=== PATIENT | male | born 1980 ===

== ENCOUNTER 2017-04-13 07:20 | Inpatient (IN) | payer OTHER ==
[2017-04-13] MEDS ORDERED: Albuterol-Ipratrop 3 mg / 0.5 (3 ml) UD ONE ×2 (07:34→07:54)
[2017-04-13 07:41] VITALS: BMI 29.2
[2017-04-13] MEDS ORDERED: Albuterol 0.083% Inhal Sol (2.5 mg/3 mL) UD INH STA (07:44)
[2017-04-13] MEDS ORDERED: Albuterol-Ipratrop 3 mg / 0.5 (3 ml) UD IH STA (07:44)
[2017-04-13] MEDS ORDERED: Albuterol 0.083% Inhal Sol (2.5 mg/3 mL) UD IH STA (07:44)
[2017-04-13 07:54] LABS: BASO # 0.1 K/uL (0.0-0.2); BASO % 0.9 % (0.0-2.0); EOS # 0.3 K/uL (0.0-0.7); HEMATOCRIT 46.5 % (35.0-51.0); LYMPH # 2.8 K/uL (1.0-4.3); LYMPH % 21.1 % (20.0-40.0); MEAN CELL VOLUME 82.7 fL (80.0-94.0); MEAN CORPUSCULAR HEMOGLOBIN 28.2 pg (27.0-31.0); MEAN CORPUSCULAR HGB CONC 34.1 g/dL (33.0-37.0); MEAN PLATELET VOLUME 8.1 fL (7.2-11.7); MONO # 0.6 K/uL (0.0-0.8); MONO % 4.6 % (0.0-10.0); NRBC % 0.4 % (0.0-2.0); RED CELL DISTRIBUTION WIDTH 14.2 % (11.5-14.5); WHITE BLOOD COUNT 13.5 K/uL (4.8-10.8)
[2017-04-13] MEDS ORDERED: Albuterol 0.083% Inhal Sol (2.5 mg/3 mL) UD ONE (07:57)
[2017-04-13 08:06] LABS: CHLORIDE 99 mmol/L (98-107); POTASSIUM 4.1 mmol/L (3.6-5.2); SODIUM 138 mmol/L (132-148)
[2017-04-13 08:08] LABS: GFR AFRICAN-AMERICAN > 60
[2017-04-13 08:09] LABS: ALB/GLOB RATIO 1.1 (1.0-2.1); ALKALINE PHOSPHATASE 105 U/L (38-126); ALT/SGPT 54 U/L (21-72); AST/SGOT 31 U/L (17-59); BILIRUBIN,TOTAL 0.9 mg/dL (0.2-1.3); BLOOD UREA NITROGEN 15 mg/dL (9-20); CARBON DIOXIDE 24 mmol/L (22-30); GLUCOSE,RANDOM 143 mg/dL (75-110); TOTAL PROTEIN 8.8 g/dL (6.3-8.3)
[2017-04-13 08:10] LABS: CALCIUM 9.6 mg/dl (8.6-10.4)
--- NOTE | 2017-04-13 09:25 | C.PDOC ---
History Of Present Illness 36-year-old male, presents to the emergency department with complaints of shortness of breath and a mild cough that started several about two weeks ago. Patient was seen in [place], 8 days ago for same. He was treated and discharged. Patient notes that his cough worsened, associated with blood streaked sputum, resulting in him coming to the ED for evaluation. Denies nausea /vomiting, fevers or chills. Time Seen by Provider: 04/13/17 07:41 Chief Complaint (Nursing): Cough, Cold, Congestion History Per: Patient History/Exam Limitations: no limitations Past Medical History Reviewed: Historical Data, Nursing Documentation, Vital Signs Vital Signs: Last Vital Signs Temp 98.2 F 04/13/17 16:00 Pulse 102 H 04/13/17 16:00 Resp 20 04/13/17 16:00 BP 135/75 04/13/17 16:00 Pulse Ox 96 04/13/17 16:00 - Medical History PMH: Asthma Surgical History: Appendectomy Family History: States: No Known Family Hx - Social History Hx Alcohol Use: No Hx Substance Use: No - Immunization History Hx Tetanus Toxoid Vaccination: No Hx Influenza Vaccination: No Review Of Systems Except As Marked, All Systems Reviewed And Found Negative. Constitutional: Negative for: Fever Cardiovascular: Negative for: Chest Pain, Palpitations Respiratory: Positive for: Cough, Shortness of Breath Gastrointestinal: Negative for: Nausea, Vomiting Musculoskeletal: Negative for: Back Pain Neurological: Negative for: Weakness, Numbness Physical Exam - Physical Exam Appears: Non-toxic, No Acute Distress Skin: Warm, Dry, No Rash Head: Atraumatic, Normacephalic Eye(s): bilateral: Normal Inspection, PERRL Nose: Normal Oral Mucosa: Moist Lips: Normal Appearing Neck: Normal ROM Cardiovascular: Rhythm Regular, No Murmur Respiratory: No Accessory Muscle Use, No Rales, No Rhonchi, No Stridor, Wheezing Extremity: Normal ROM Neurological/Psych: Oriented x3, Normal Speech ED Course And Treatment - Laboratory Results Result Diagrams: 04/13/17 07:51 04/13/17 07:51 O2 Sat by Pulse Oximetry: 88 Pulse Ox Interpretation: Abnormal - Radiology CXR: Interpreted by Me, Viewed By Me Medical Decision Making Medical Decision Making: Patients O2 saturation 88 upon arrival. He was given three treatments and O2 sat w/ minimal improvement. Case was discussed w/ Dr xena Alejandre, states he will accept patient to regular floor for observation. Patient agreeable with plan. Disposition - Disposition Disposition: HOSPITALIZED Disposition Time: 09:25 Condition: GOOD - Clinical Impression Clinical Impression: Asthma exacerbation, Hypoxia - Scribe Statement The provider has reviewed the documentation as recorded by the Scribe (Josephine Castelan) All medical record entries made by the Scribe were at my direction and personally dictated by me. I have reviewed the chart and agree that the record accurately reflects my personal performance of the history, physical exam, medical decision making, and the department course for this patient. I have also personally directed, reviewed, and agree with the discharge instructions and disposition. Decision To Admit - Pt Status Changed To: Hospital Disposition Of: Observation - . Bed Request Type: Regular Admitting Physician: Benton Alejandre Patient Diagnosis: Asthma exacerbation, Hypoxia
--- NOTE | 2017-04-13 12:43 | RAD ---
HISTORY: SOB, cough COMPARISON: No prior. TECHNIQUE: Chest PA and lateral FINDINGS: LUNGS: No active pulmonary disease. PLEURA: No significant pleural effusion identified. No pneumothorax apparent. CARDIOVASCULAR: Normal. OSSEOUS STRUCTURES: No significant abnormalities. VISUALIZED UPPER ABDOMEN: Normal. OTHER FINDINGS: None. IMPRESSION: No active disease. Concordant results with the preliminary interpretation rendered by the emergency department physician procedure.
[2017-04-13] MEDS ORDERED: Tuberculin 5 Units/0.1 ml Inj ID ONE (13:30)
--- NOTE | 2017-04-13 13:58 | CP.PCM.HP ---
<Bre Cardenas - Last Filed: 04/13/17 13:42> History of Present Illness - History of Present Illness History of Present Illness: CC: "I couldn't breath" HPI: 36 year old male with no past medical history presenting to the emergency department for shortness of break for the past week. Patient stated that his shortness of breath began on 04/07. He went to [facility] that day and was sent home with a script for albuterol INH q6h prn. The patient did not fill the script until 2 days later and by then his shortness of breath had worsened. The patient is short of breath at rest as well as with exertion. Patient denies having a history of asthma and ever needing albuterol prior to last week. The albuterol prescription was filled 04/09 and the patient has been using it every 6 hours with mild relief. The patient states over the week his shortness of breath has been increasing and today unbearable. Patient is also complaining of subjective fevers which he has been taking acetaminophen. Patient is also complaining of a productive cough with yellow sputum that started on the same day. The patient complains of sore throat. Patient denies headache, sinus pressure, and nasal congestion. On 04/12 the sputum was blood tinged (3 episodes) and no more blood tinging since that Friday. Patient denies weight loss, nausea, vomiting, and diarrhea. Patient has had decreased appetite. Patient also complains of night sweats. Patient denies recent travel and moved from [facility] 14 years ago. Patient denies recent sick contacts. Patients has never had tuberculosis nor the BCG vaccine. PMD: none PMHx: denies Social Hx: Denies tobacco use, denies alcohol use, denies illicit drug use; works at a [employer], only Montenegrin speaking Allergy: none Surgical Hx: appendectomy in 2010 Hospitalizations: appendectomy in 2010 Family Hx: mother has insulin dependent DM, father healthy, older sister asthma Medicine: none Recent albuterol and acetaminophen use FULL CODE Next of kin: Holly Lewis () # [phone] Present on Admission - Present on Admission Any Indicators Present on Admission: No Review of Systems - Constitutional Constitutional: As Per HPI, Chills, Fever, Night Sweats - EENT Eyes: As Per HPI. absent: Blurred Vision, Change in Vision Ears: As Per HPI. absent: Dizziness Nose/Mouth/Throat: As Per HPI, Sore Throat. absent: Nasal Congestion, Nasal Discharge - Cardiovascular Cardiovascular: As Per HPI, Dyspnea. absent: Chest Pain, Leg Edema, Lightheadedness, Palpitations - Respiratory Respiratory: As Per HPI, Cough, Dyspnea, Dyspnea on Exertion, Chest Congestion, Change in Mucous Color, Pain with Coughing. absent: Hemoptysis, Wheezing, Snoring, Stridor - Gastrointestinal Gastrointestinal: As Per HPI. absent: Abdominal Pain, Belching, Bloating, Constipation, Diarrhea, Nausea, Vomiting - Genitourinary Genitourinary: As Per HPI. absent: Change in Urinary Stream, Difficulty Urinating - Musculoskeletal Musculoskeletal: As Per HPI. absent: Arthralgias, Back Pain, Muscle Cramps, Muscle Weakness, Neck Pain, Numbness, Stiffness, Tingling - Integumentary Integumentary: As Per HPI. absent: New Lesions, Rash - Neurological Neurological: As Per HPI. absent: Dizziness, Headaches - Psychiatric Psychiatric: As Per HPI. absent: Anxiety, Depression - Endocrine Endocrine: As Per HPI. absent: Fatigue, Palpitations Past Patient History - Past Medical History & Family History Past Medical History?: No - Past Social History Smoking Status: Never Smoked - CARDIAC Hx Cardiac Disorders: No - PULMONARY Hx Asthma: Yes - NEUROLOGICAL Hx Neurological Disorder: No - HEENT Hx HEENT Problems: No - RENAL Hx Chronic Kidney Disease: No - ENDOCRINE/METABOLIC Hx Endocrine Disorders: No - HEMATOLOGICAL/ONCOLOGICAL Hx Blood Disorders: No - INTEGUMENTARY Hx Dermatological Problems: No - MUSCULOSKELETAL/RHEUMATOLOGICAL Hx Musculoskeletal Disorders: No Hx Falls: No - GASTROINTESTINAL Hx Gastrointestinal Disorders: No - GENITOURINARY/GYNECOLOGICAL Hx Genitourinary Disorders: No - PSYCHIATRIC Hx Substance Use: No - SURGICAL HISTORY Hx Appendectomy: Yes - ANESTHESIA Hx Anesthesia: Yes Hx Anesthesia Reactions: No Hx Malignant Hyperthermia: No Has any member of the family had a problem w/ anesthesia?: No Meds Allergies/Adverse Reactions: Allergies Allergy/AdvReac Type Severity Reaction Status Date / Time No Known Allergies Allergy Verified 04/13/17 07:40 Physical Exam - Constitutional Appears: Well, Non-toxic, No Acute Distress - Head Exam Head Exam: ATRAUMATIC, NORMOCEPHALIC - Eye Exam Eye Exam: EOMI, Normal appearance, PERRL Pupil Exam: NORMAL ACCOMODATION - ENT Exam ENT Exam: Mucous Membranes Moist, Normal Exam - Neck Exam Neck exam: Positive for: Normal Inspection - Respiratory Exam Respiratory Exam: Decreased Breath Sounds, Rales (Left lower lobe), NORMAL BREATHING PATTERN. absent: Accessory Muscle Use, Clear to Auscultation Bilateral, Wheezes, Respiratory Distress, Stridor Additional comments: Patient received nebulizer treatment prior to examination and was examined with ventimask on 3L O2 - Cardiovascular Exam Cardiovascular Exam: REGULAR RHYTHM, +S1, +S2. absent: Bradycardia, Tachycardia , Diastolic murmur, Irregular Rhythm, Systolic Murmur - GI/Abdominal Exam GI & Abdominal Exam: Normal Bowel Sounds, Soft. absent: Distended, Firm, Guarding, Tenderness - Extremities Exam Extremities exam: Positive for: full ROM, normal capillary refill, normal inspection, pedal pulses present. Negative for: pedal edema - Back Exam Back exam: NORMAL INSPECTION - Neurological Exam Neurological exam: Alert, CN II-XII Intact, Oriented x3 - Psychiatric Exam Psychiatric exam: Normal Affect, Normal Mood - Skin Skin Exam: Dry, Intact, Normal Color, Warm Results - Vital Signs Recent Vital Signs: Last Vital Signs Temp 99.0 F 04/13/17 11:29 Pulse 90 04/13/17 11:29 Resp 20 04/13/17 11:29 BP 127/76 04/13/17 11:29 Pulse Ox 88 L 04/13/17 11:46 - Labs Result Diagrams: 04/13/17 07:51 04/13/17 07:51 Labs: Laboratory Results - last 24 hr 04/13/17 04/13/17 04/13/17 07:51 07:51 11:56 WBC 13.5 H RBC 5.62 Hgb 15.8 Hct 46.5 MCV 82.7 MCH 28.2 MCHC 34.1 RDW 14.2 Plt Count 533 H MPV 8.1 Neut % (Auto) 71.4 Lymph % (Auto) 21.1 Sherman % (Auto) 4.6 Eos % (Auto) 2.0 Baso % (Auto) 0.9 Neut # 9.7 H Lymph # 2.8 Sherman # 0.6 Eos # 0.3 Baso # 0.1 D-Dimer, Quantitative 271 H Sodium 138 Potassium 4.1 Chloride 99 Carbon Dioxide 24 Anion Gap 19 BUN 15 Creatinine 0.9 Est GFR ( Amer) > 60 Est GFR (Non-Af Amer) > 60 Random Glucose 143 H Calcium 9.6 Total Bilirubin 0.9 AST 31 ALT 54 Alkaline Phosphatase 105 Total Protein 8.8 H Albumin 4.6 Globulin 4.2 H Albumin/Globulin Ratio 1.1 Assessment & Plan - Assessment and Plan (Free Text) Assessment: 1. Asthma * Admit for observation * Solumedrol IV 60mg q8h * Duonebs q6h INH GUS with pre and post peak flow, will change to prn after 24 hours * f/u influenza * Consulted radiologic electronic specialist Dr Marx- will f/u recommendations * f/u PPD * Mucinex 600mg BID 2. Elevated D-dimer * EKG shows NSR, no ST changes * f/u CTA chest to rule out PE * Patient low risk for DVT/PE 3. Leukocytosis * WBC 13.5, no left shift, afebrile * Will monitor CBC daily; if patient becomes febrile will order blood cultures 4. Prophylactic measures * DVT risk score of 0: SCDs * Pepcid 20mg PO BID * Regular diet <Benton Alejandre - Last Filed: 04/13/17 22:55> Results - Vital Signs Recent Vital Signs: Last Vital Signs Temp 98.2 F 04/13/17 16:00 Pulse 102 H 04/13/17 16:00 Resp 20 04/13/17 16:00 BP 135/75 04/13/17 16:00 Pulse Ox 94 L 04/13/17 19:00 - Labs Result Diagrams: 04/13/17 07:51 04/13/17 07:51 Labs: Laboratory Results - last 24 hr 04/13/17 04/13/17 04/13/17 07:51 07:51 11:56 WBC 13.5 H RBC 5.62 Hgb 15.8 Hct 46.5 MCV 82.7 MCH 28.2 MCHC 34.1 RDW 14.2 Plt Count 533 H MPV 8.1 Neut % (Auto) 71.4 Lymph % (Auto) 21.1 Sherman % (Auto) 4.6 Eos % (Auto) 2.0 Baso % (Auto) 0.9 Neut # 9.7 H Lymph # 2.8 Sherman # 0.6 Eos # 0.3 Baso # 0.1 D-Dimer, Quantitative 271 H Sodium 138 Potassium 4.1 Chloride 99 Carbon Dioxide 24 Anion Gap 19 BUN 15 Creatinine 0.9 Est GFR ( Amer) > 60 Est GFR (Non-Af Amer) > 60 Random Glucose 143 H Calcium 9.6 Total Bilirubin 0.9 AST 31 ALT 54 Alkaline Phosphatase 105 Total Protein 8.8 H Albumin 4.6 Globulin 4.2 H Albumin/Globulin Ratio 1.1 Influenza Typ A,B (EIA) 04/13/17 13:34 WBC RBC Hgb Hct MCV MCH MCHC RDW Plt Count MPV Neut % (Auto) Lymph % (Auto) Sherman % (Auto) Eos % (Auto) Baso % (Auto) Neut # Lymph # Sherman # Eos # Baso # D-Dimer, Quantitative Sodium Potassium Chloride Carbon Dioxide Anion Gap BUN Creatinine Est GFR ( Amer) Est GFR (Non-Af Amer) Random Glucose Calcium Total Bilirubin AST ALT Alkaline Phosphatase Total Protein Albumin Globulin Albumin/Globulin Ratio Influenza Typ A,B (EIA) Negative for flu a/b Attending/Attestation - Attestation I have personally seen and examined this patient.: Yes I have fully participated in the care of the patient.: Yes I have reviewed all pertinent clinical information: Yes Notes (Text): 04/13/17 22:53 Patient was seen and examined with the resident History, Physical, Assessment and Plan were thoroughly gone over the resident. Benton Alejandre D.O.
[2017-04-13] MEDS: Albuterol-Ipratrop 3 mg / 0.5 (3 ml) UD INH SCH ×2 (14:38→20:38)
[2017-04-13] MEDS ORDERED: Iodixanol 320 MG/ML 100 ML BOTTLE IV ONE (17:04)
[2017-04-13] MEDS: guaiFENesin 600 mg ER Tab PO SCH (17:51)
--- NOTE | 2017-04-13 17:53 | CT ---
PROCEDURE: CT Chest with contrast (Pulmonary Angiogram) HISTORY: elevated d dimer COMPARISON: None available. TECHNIQUE: Axial computed tomography images were obtained of the chest in the pulmonary arterial phase of enhancement. Coronal and sagittal reformatted images were created and reviewed. Intravenous contrast dose: 100 mL Visipaque 320 Radiation dose: Total exam DLP = 481.77 mGy-cm. This CT exam was performed using one or more of the following dose reduction techniques: Automated exposure control, adjustment of the mA and/or kV according to patient size, and/or use of iterative reconstruction technique. FINDINGS: PULMONARY ARTERIES: Suboptimal study. No pulmonary embolism. AORTA: No acute findings. No thoracic aortic aneurysm. LUNGS: No evidence of focal infiltrate or consolidation in the lungs. . No nodule, mass or pulmonary consolidation. PLEURAL SPACES: No evidence of significant pleural effusion. Mild pleural thickening seen at the lung bases. HEART: Unremarkable. No cardiomegaly. No significant pericardial effusion. LYMPH NODES: Slightly prominent precarinal and AP window lymph nodes are seen. BONES, CHEST WALL: Unremarkable. No fracture or destructive lesion OTHER FINDINGS: Unremarkable. IMPRESSION: Suboptimal study. No evidence of pulmonary embolus. No evidence of pneumonia or mass lesion in the lungs. Hepatic steatosis.
[2017-04-14] MEDS: Albuterol-Ipratrop 3 mg / 0.5 (3 ml) UD INH SCH ×4 (01:34→19:49)
[2017-04-14 07:31] LABS: BASO % 0.1 % (0.0-2.0); HEMATOCRIT 43.2 % (35.0-51.0); LYMPH # 1.1 K/uL (1.0-4.3); LYMPH % 8.4 % (20.0-40.0); MEAN CORPUSCULAR HEMOGLOBIN 28.4 pg (27.0-31.0); MEAN CORPUSCULAR HGB CONC 34.2 g/dL (33.0-37.0); MEAN PLATELET VOLUME 8.2 fL (7.2-11.7); MONO # 0.4 K/uL (0.0-0.8); MONO % 2.8 % (0.0-10.0); PLATELET COUNT 528 K/uL (130-400); RED CELL DISTRIBUTION WIDTH 14.2 % (11.5-14.5)
[2017-04-14 07:50] LABS: CHLORIDE 102 mmol/L (98-107); SODIUM 139 mmol/L (132-148)
[2017-04-14 07:52] LABS: GFR AFRICAN-AMERICAN > 60
[2017-04-14 07:53] LABS: BLOOD UREA NITROGEN 20 mg/dL (9-20); CALCIUM 9.5 mg/dl (8.6-10.4); CARBON DIOXIDE 24 mmol/L (22-30); GLUCOSE,RANDOM 146 mg/dL (75-110)
[2017-04-14] MEDS: guaiFENesin 600 mg ER Tab PO SCH ×2 (09:06→18:00)
[2017-04-14 09:17] LABS: NEUTROPHIL 86 % (50-75); REACTIVE LYMPHOCYTES 1 % (0-0); TOTAL CELLS COUNTED 100
--- NOTE | 2017-04-14 15:06 | CP.PCM.PN ---
<Yojana Martin - Last Filed: 04/14/17 14:49> Subjective - Date & Time of Evaluation Date of Evaluation: 04/14/17 Time of Evaluation: 10:00 - Subjective Subjective: Medicine Note for Dr. Brito Patient was seen and examined at bedside. Patient reports his breathing has much improved. No acute complaints. Denied fever, chills, headache, chest pain, abdominal pain, n/v/d/c, or urinary symptoms. Objective - Vital Signs/Intake and Output Vital Signs (last 24 hours): Temp Pulse Resp BP Pulse Ox 97.4 F L 94 H 88 H 131/77 97 04/14/17 08:22 04/14/17 08:22 04/14/17 08:22 04/14/17 08:22 04/14/17 00:00 Intake and Output: 04/14/17 04/14/17 06:59 18:59 Intake Total 420 Balance 420 - Medications Medications: Current Medications Albuterol/Ipratropium (Duoneb 3 Mg/0.5 Mg (3 Ml) Ud) 3 ml INH RQ6 GUS Last Admin: 04/14/17 13:19 Dose: 3 ml Guaifenesin (Mucinex La) 600 mg PO BID GUS Last Admin: 04/14/17 09:06 Dose: 600 mg Methylprednisolone (Solu-Medrol) 60 mg IVP Q12H GUS Pantoprazole Sodium (Protonix Inj) 40 mg IVP DAILY GUS Pneumococcal Polyvalent Vaccine (Pneumovax 23 Vaccine) 0.5 ml IM .ONCE ONE Stop: 04/16/17 10:01 Promethazine HCl/Codeine (Phenergan/Codeine Oral Syrup) 5 ml PO Q4 PRN PRN Reason: Cough - Labs Labs: 04/14/17 07:06 04/14/17 07:06 - Additional Findings Additional findings: - Constitutional Appears: Well, Non-toxic, No Acute Distress - Head Exam Head Exam: ATRAUMATIC, NORMOCEPHALIC - Eye Exam Eye Exam: EOMI, Normal appearance, PERRL Pupil Exam: NORMAL ACCOMODATION - ENT Exam ENT Exam: Mucous Membranes Moist, Normal Exam - Neck Exam Neck exam: Positive for: Normal Inspection - Respiratory Exam Respiratory Exam: Decreased Breath Sounds, Rales (Left lower lobe), NORMAL BREATHING PATTERN. absent: Accessory Muscle Use, Clear to Auscultation Bilateral, Wheezes, Respiratory Distress, Stridor Additional comments: Patient received nebulizer treatment prior to examination and was examined with NC on 2L O2 - Cardiovascular Exam Cardiovascular Exam: REGULAR RHYTHM, +S1, +S2. absent: Bradycardia, Tachycardia , Diastolic murmur, Irregular Rhythm, Systolic Murmur - GI/Abdominal Exam GI & Abdominal Exam: Normal Bowel Sounds, Soft. absent: Distended, Firm, Guarding, Tenderness - Extremities Exam Extremities exam: Positive for: full ROM, normal capillary refill, normal inspection, pedal pulses present. Negative for: pedal edema - Back Exam Back exam: NORMAL INSPECTION - Neurological Exam Neurological exam: Alert, CN II-XII Intact, Oriented x3 - Psychiatric Exam Psychiatric exam: Normal Affect, Normal Mood - Skin Skin Exam: Dry, Intact, Normal Color, Warm Assessment and Plan - Assessment and Plan (Free Text) Plan: Asthma * Consulted patient ambassador Dr Marx- help appreciated * Influenza - negative, f/u strep pneumonia, IgE, legionella, mycoplasma, PPD ( right forearm) * CXR: no active disease * Solumedrol IV 60mg q12h * Duonebs q6h INH GUS (Pre-peak flow 220) * Mucinex 600mg BID * Phenergan/ Codeine 5ml PO Q4H PRN Elevated D-dimer * CXR: no active disease * EKG shows NSR, no ST changes * CTA chest- negative for PE * Patient low risk for DVT/PE Leukocytosis * WBC 13.5, no left shift, afebrile * Will monitor CBC daily; if patient becomes febrile will order blood cultures * Most likely 2/2 steroids Prophylactic measures * DVT PPX: DVT risk score of 0: SCDs * GI PPX: Protonix 40mg PO daily * Regular diet DW Veronica Mohamud DO, PGY-1 <Jen Brito V - Last Filed: 04/14/17 17:57> Objective - Vital Signs/Intake and Output Vital Signs (last 24 hours): Temp Pulse Resp BP Pulse Ox 99.1 F 102 H 20 144/72 94 L 04/14/17 16:00 04/14/17 16:00 04/14/17 16:00 04/14/17 16:00 04/14/17 16:00 Intake and Output: 04/14/17 04/14/17 06:59 18:59 Intake Total 420 240 Balance 420 240 - Medications Medications: Current Medications Albuterol/Ipratropium (Duoneb 3 Mg/0.5 Mg (3 Ml) Ud) 3 ml INH RQ6 GUS Last Admin: 04/14/17 13:19 Dose: 3 ml Guaifenesin (Mucinex La) 600 mg PO BID GUS Last Admin: 04/14/17 09:06 Dose: 600 mg Methylprednisolone (Solu-Medrol) 60 mg IVP Q12H GUS Pantoprazole Sodium (Protonix Inj) 40 mg IVP DAILY GUS Pneumococcal Polyvalent Vaccine (Pneumovax 23 Vaccine) 0.5 ml IM .ONCE ONE Stop: 04/16/17 10:01 Promethazine HCl/Codeine (Phenergan/Codeine Oral Syrup) 5 ml PO Q4 PRN PRN Reason: Cough - Labs Labs: 04/14/17 07:06 04/14/17 07:06 Attending/Attestation - Attestation I have personally seen and examined this patient.: Yes I have fully participated in the care of the patient.: Yes I have reviewed all pertinent clinical information, including history, physical exam and plan: Yes Notes (Text): Patient seen, examined, and case discussed with day-time resident. Patient with no prior history of asthma comes in following repeated use of his rescue inhaler. Patient reports his breathing is better. Patient has not formally being seen by patient ambassador nor had a workup for diagnosis of asthma. Patient's peak flow on admission was 220. Will need to follow-up peak flow to see improvement f/u pulm for recommendations Assessment/Plan 1) Suspected Asthma; Possible Bronchitis * Consulted patient ambassador Dr Marx- help appreciated * Influenza - negative, f/u strep pneumonia, IgE, legionella, mycoplasma, * PPD (right forearm) placed on 04/13--> to be read on 04/15 at 130PM * CXR: no active disease * Taper Solumedrol IV 60mg q12h * Duonebs q6h INH GUS (Pre-peak flow 220) * Mucinex 600mg BID * Phenergan/ Codeine 5ml PO Q4H PRN cough * CT Chest (04/14/17): suboptimal study. no evidence of pulmonary embolus. No evidence of pneumonia or mass lesion in the lungs. hepatic steatosis 2) Elevated D-dimer * CXR: no active disease * EKG shows NSR, no ST changes * CT Chest (04/14/17): suboptimal study. no evidence of pulmonary embolus. No evidence of pneumonia or mass lesion in the lungs. hepatic steatosis * Patient low risk for DVT/PE 3) Leukocytosis * WBC 13.5, no left shift, afebrile on admission * Patient started on IV steroids * Will continue to monitor * Will monitor CBC daily; if patient becomes febrile will order blood cultures * Most likely 2/2 steroids 4) Prophylactic measures * DVT PPX: DVT risk score of 0: SCDs * GI PPX: Protonix 40mg PO daily * Regular diet
[2017-04-14] MEDS: Promethazine/Cod 6.25mg-10mg/5ml Syr UD PO PRN (18:20)
--- NOTE | 2017-04-14 21:38 | CARD ---
APPROVED REPORT EKG Measurement Heart [id number] <Conclusion> Sinus tachycardia Otherwise normal ECG
[2017-04-15] MEDS: Albuterol-Ipratrop 3 mg / 0.5 (3 ml) UD INH SCH ×4 (01:33→19:07)
[2017-04-15] MEDS: guaiFENesin 600 mg ER Tab PO SCH ×2 (10:02→18:36)
[2017-04-15 10:57] LABS: ABG ALLEN TEST YES; ARTERIAL BLOOD HGB O2 SAT 90.4 % (95.0-98.0); CARBOXYHEMOGLOBIN 1.8 % (0.5-1.5); DRAW SITE RRA; HHB 6.9 % (0.0-5.0); METHEMOGLOBIN 0.9 % (0.0-3.0)
[2017-04-15] MEDS: Promethazine/Cod 6.25mg-10mg/5ml Syr UD PO PRN ×2 (12:11→18:36)
[2017-04-15] MEDS ORDERED: Azithromycin 500 MG in Sodium Chloride 0.9% 250 ML IVPB STA (12:38)
--- NOTE | 2017-04-15 14:17 | CP.PCM.PN ---
<Yojana Martin - Last Filed: 04/15/17 14:12> Subjective - Date & Time of Evaluation Date of Evaluation: 04/15/17 Time of Evaluation: 09:00 - Subjective Subjective: Medicine Note for Dr. Brito Patient was seen and examined at bedside. Patient reports his breathing has much improved, but still does feel SOB during ambulation. No acute complaints. Denied fever, chills, headache, chest pain, abdominal pain, n/v/d/c, or urinary symptoms. Objective - Vital Signs/Intake and Output Vital Signs (last 24 hours): Temp Pulse Resp BP Pulse Ox 98.2 F 100 H 20 147/76 86 L 04/15/17 09:01 04/15/17 09:01 04/15/17 09:01 04/15/17 09:01 04/15/17 09:01 Intake and Output: 04/15/17 04/15/17 06:59 18:59 Intake Total 450 Balance 450 - Medications Medications: Current Medications Albuterol/Ipratropium (Duoneb 3 Mg/0.5 Mg (3 Ml) Ud) 3 ml INH RQ6 GUS Last Admin: 04/15/17 13:10 Dose: 3 ml Guaifenesin (Mucinex La) 600 mg PO BID [facility] Last Admin: 04/15/17 10:02 Dose: 600 mg Azithromycin 500 mg/ Sodium (Chloride) 250 mls @ 166.667 mls/hr IVPB DAILY [facility] Methylprednisolone (Solu-Medrol) 60 mg IVP Q12H [facility] Last Admin: 04/15/17 12:12 Dose: 60 mg Pantoprazole Sodium (Protonix Inj) 40 mg IVP DAILY [facility] Last Admin: 04/15/17 10:02 Dose: 40 mg Pneumococcal Polyvalent Vaccine (Pneumovax 23 Vaccine) 0.5 ml IM .ONCE ONE Stop: 04/16/17 10:01 Promethazine HCl/Codeine (Phenergan/Codeine Oral Syrup) 5 ml PO Q4 PRN PRN Reason: Cough Last Admin: 04/15/17 12:11 Dose: 5 ml - Labs Labs: 04/14/17 07:06 04/14/17 07:06 - Additional Findings Additional findings: - Constitutional Appears: Well, Non-toxic, No Acute Distress - Head Exam Head Exam: ATRAUMATIC, NORMOCEPHALIC - Eye Exam Eye Exam: EOMI, Normal appearance, PERRL Pupil Exam: NORMAL ACCOMODATION - ENT Exam ENT Exam: Mucous Membranes Moist, Normal Exam - Neck Exam Neck exam: Positive for: Normal Inspection - Respiratory Exam Respiratory Exam: Decreased Breath Sounds, Rales (Left lower lobe), NORMAL BREATHING PATTERN. absent: Accessory Muscle Use, Clear to Auscultation Bilateral, Wheezes, Respiratory Distress, Stridor Additional comments: examined with NC on 2L O2 - Cardiovascular Exam Cardiovascular Exam: REGULAR RHYTHM, +S1, +S2. absent: Bradycardia, Tachycardia , Diastolic murmur, Irregular Rhythm, Systolic Murmur - GI/Abdominal Exam GI & Abdominal Exam: Normal Bowel Sounds, Soft. absent: Distended, Firm, Guarding, Tenderness - Extremities Exam Extremities exam: Positive for: full ROM, normal capillary refill, normal inspection, pedal pulses present. Negative for: pedal edema - Back Exam Back exam: NORMAL INSPECTION - Neurological Exam Neurological exam: Alert, CN II-XII Intact, Oriented x3 - Psychiatric Exam Psychiatric exam: Normal Affect, Normal Mood - Skin Skin Exam: Dry, Intact, Normal Color, Warm Assessment and Plan - Assessment and Plan (Free Text) Plan: Suspected Asthma; Possible Bronchitis * Consulted sheet metal duct worker supervisor Dr Marx- help appreciated * Influenza - negative, strep pneumonia, legionella, mycoplasma - all negative, f/u IgE * PPD (right forearm) placed on 04/13--> 48Hr -negative, 72hr - will be read tomorrow * CXR: no active disease * CT Chest (04/14/17): suboptimal study. no evidence of pulmonary embolus. No evidence of pneumonia or mass lesion in the lungs. hepatic steatosis * ABG ordered today, PO2 = 52 on RA * Solumedrol IV 60mg q12h will taper as he improves clinically * Started Azithromax 500mg IVP daily (04/15/17) * Duonebs q6h INH GUS (Pre-peak flow 220) * Mucinex 600mg BID * Phenergan/ Codeine 5ml PO Q4H PRN cough Leukocytosis * Downtrending, Most likely 2/2 steroids * Patient started on IV steroids --> currently on Solumedrol 60mg IVP Q12 * Will monitor CBC daily; if patient becomes febrile will order blood cultures Elevated D-dimer * CXR: no active disease * EKG shows NSR, no ST changes * CT Chest (04/14/17): suboptimal study. no evidence of pulmonary embolus. No evidence of pneumonia or mass lesion in the lungs. hepatic steatosis * Patient low risk for DVT/PE Prophylactic measures * DVT PPX: DVT risk score of 0: SCDs * GI PPX: Protonix 40mg PO daily * Regular diet * PT/OT Disposition: If patient improves clinically, will anticipate discharge tomorrow. DW Veronica Mohamud DO, PGY-1 <Jen Brito V - Last Filed: 04/16/17 01:06> Objective - Vital Signs/Intake and Output Vital Signs (last 24 hours): Temp Pulse Resp BP Pulse Ox 98.3 F 79 18 121/74 96 04/15/17 23:25 04/15/17 23:25 04/15/17 23:25 04/15/17 23:25 04/15/17 23:25 Intake and Output: 04/15/17 04/16/17 18:59 06:59 Intake Total 490 340 Balance 490 340 - Medications Medications: Current Medications Albuterol/Ipratropium (Duoneb 3 Mg/0.5 Mg (3 Ml) Ud) 3 ml INH RQ6 [facility] Last Admin: 04/15/17 19:07 Dose: 3 ml Guaifenesin (Mucinex La) 600 mg PO BID [facility] Last Admin: 04/15/17 18:36 Dose: 600 mg Azithromycin 500 mg/ Sodium (Chloride) 250 mls @ 166.667 mls/hr IVPB DAILY [facility] Methylprednisolone (Solu-Medrol) 60 mg IVP Q12H [facility] Last Admin: 04/16/17 00:11 Dose: 60 mg Pantoprazole Sodium (Protonix Inj) 40 mg IVP DAILY [facility] Last Admin: 04/15/17 10:02 Dose: 40 mg Pneumococcal Polyvalent Vaccine (Pneumovax 23 Vaccine) 0.5 ml IM .ONCE ONE Stop: 04/16/17 10:01 Promethazine HCl/Codeine (Phenergan/Codeine Oral Syrup) 5 ml PO Q4 PRN PRN Reason: Cough Last Admin: 04/15/17 18:36 Dose: 5 ml - Labs Labs: 04/14/17 07:06 04/14/17 07:06 Attending/Attestation - Attestation I have personally seen and examined this patient.: Yes I have fully participated in the care of the patient.: Yes I have reviewed all pertinent clinical information, including history, physical exam and plan: Yes Notes (Text): This is late computer entry for 04/15/17. Patient seen, examined, and case discussed with day-time resident. Patient with no prior history of asthma comes in following repeated use of his rescue inhaler. Patient reports his breathing is better. Pulmonary recommended ABG; which shows patient is hypoxic; Physcial therapy eval ; Patient ambulating with today. Ordered for echocardiogram for possible pulmonary hypertension Patient received 1st dose of Azithromycin 500mg IV q daily. Patient has not formally being seen by sheet metal duct worker supervisor nor had a workup for diagnosis of asthma. Patient's peak flow on admission was 220. Will need to follow-up peak flow to see improvement Assessment/Plan 1) Suspected Asthma; Possible Bronchitis * Consulted sheet metal duct worker supervisor Dr Marx- help appreciated * Influenza - negative, f/u strep pneumonia, IgE, legionella, mycoplasma, * PPD (right forearm) placed on 04/13--> negative; flat; next read tomorrow * CXR: no active disease * Taper Solumedrol IV 60mg q12h * Duonebs q6h INH GUS (Pre-peak flow 220)-->f/u respiratory therapist * Mucinex 600mg BID * Phenergan/ Codeine 5ml PO Q4H PRN cough * CT Chest (04/14/17): suboptimal study. no evidence of pulmonary embolus. No evidence of pneumonia or mass lesion in the lungs. hepatic steatosis * Start Azithromcyin 500mg IV q daily 2) Elevated D-dimer * CXR: no active disease * EKG shows NSR, no ST changes * CT Chest (04/14/17): suboptimal study. no evidence of pulmonary embolus. No evidence of pneumonia or mass lesion in the lungs. hepatic steatosis * Patient low risk for DVT/PE * Ordered for echocardiogram 3) Leukocytosis * WBC 13.5, no left shift, afebrile on admission * Patient started on IV steroids * Will continue to monitor * Will monitor CBC daily; if patient becomes febrile will order blood cultures * Most likely 2/2 steroids 4) Prophylactic measures * DVT PPX: DVT risk score of 0: SCDs * GI PPX: Protonix 40mg PO daily * Regular diet
--- NOTE | 2017-04-15 16:35 | CP.PCM.PN ---
Subjective - Date & Time of Evaluation Date of Evaluation: 04/15/17 Time of Evaluation: 14:00 - Subjective Subjective: patient seen and examined Complaining of dyspnea on exertion Remains hypoxic Afebrile No chest pain Awake and responsive Objective - Vital Signs/Intake and Output Vital Signs (last 24 hours): Temp Pulse Resp BP Pulse Ox 98.4 F 81 20 131/72 95 04/15/17 16:00 04/15/17 16:00 04/15/17 16:00 04/15/17 16:00 04/15/17 16:00 Intake and Output: 04/15/17 04/15/17 06:59 18:59 Intake Total 450 490 Balance 450 490 - Medications Medications: Current Medications Albuterol/Ipratropium (Duoneb 3 Mg/0.5 Mg (3 Ml) Ud) 3 ml INH RQ6 COUNTS INCLUDE 234 BEDS AT [facility] Last Admin: 04/15/17 13:10 Dose: 3 ml Guaifenesin (Mucinex La) 600 mg PO BID COUNTS INCLUDE 234 BEDS AT THE [facility] Last Admin: 04/15/17 10:02 Dose: 600 mg Azithromycin 500 mg/ Sodium (Chloride) 250 mls @ 166.667 mls/hr IVPB DAILY COUNTS INCLUDE 234 BEDS AT [facility] Methylprednisolone (Solu-Medrol) 60 mg IVP Q12H COUNTS INCLUDE 234 BEDS AT THE [facility] Last Admin: 04/15/17 12:12 Dose: 60 mg Pantoprazole Sodium (Protonix Inj) 40 mg IVP DAILY COUNTS INCLUDE 234 BEDS AT [facility] Last Admin: 04/15/17 10:02 Dose: 40 mg Pneumococcal Polyvalent Vaccine (Pneumovax 23 Vaccine) 0.5 ml IM .ONCE ONE Stop: 04/16/17 10:01 Promethazine HCl/Codeine (Phenergan/Codeine Oral Syrup) 5 ml PO Q4 PRN PRN Reason: Cough Last Admin: 04/15/17 12:11 Dose: 5 ml - Labs Labs: 04/14/17 07:06 04/14/17 07:06 - Head Exam Head Exam: ATRAUMATIC, NORMOCEPHALIC - Eye Exam Eye Exam: Normal appearance - ENT Exam ENT Exam: Mucous Membranes Moist - Neck Exam Neck Exam: Normal Inspection - Respiratory Exam Respiratory Exam: Rales - Cardiovascular Exam Cardiovascular Exam: REGULAR RHYTHM - GI/Abdominal Exam GI & Abdominal Exam: Soft, Normal Bowel Sounds - Extremities Exam Extremities Exam: Full ROM, Normal Inspection - Neurological Exam Neurological Exam: Alert Assessment and Plan (1) Hypoxia Assessment & Plan: patient remains hypoxic CT angio negative for pulmonary embolism started on azithromycin Continue IV steroids Consider an echocardiogram to rule out pulmonary hypertension Status: Acute (2) Asthma exacerbation Status: Acute
[2017-04-16] MEDS: Albuterol-Ipratrop 3 mg / 0.5 (3 ml) UD INH SCH ×4 (01:36→19:54)
[2017-04-16 07:26] LABS: BASO % 0.2 % (0.0-2.0); HEMATOCRIT 44.2 % (35.0-51.0); LYMPH # 1.2 K/uL (1.0-4.3); MEAN CORPUSCULAR HEMOGLOBIN 27.7 pg (27.0-31.0); MEAN CORPUSCULAR HGB CONC 33.4 g/dL (33.0-37.0); MEAN PLATELET VOLUME 8.4 fL (7.2-11.7); MONO # 0.3 K/uL (0.0-0.8); MONO % 2.3 % (0.0-10.0); NRBC % 0.5 % (0.0-2.0); PLATELET COUNT 563 K/uL (130-400); RED CELL DISTRIBUTION WIDTH 14.3 % (11.5-14.5); WHITE BLOOD COUNT 13.7 K/uL (4.8-10.8)
[2017-04-16 07:37] LABS: CHLORIDE 99 mmol/L (98-107); POTASSIUM 4.4 mmol/L (3.6-5.2); SODIUM 135 mmol/L (132-148)
[2017-04-16 07:39] LABS: ALB/GLOB RATIO 1.4 (1.0-2.1); ALKALINE PHOSPHATASE 91 U/L (38-126); AST/SGOT 32 U/L (17-59); BILIRUBIN,TOTAL 0.8 mg/dL (0.2-1.3); CARBON DIOXIDE 23 mmol/L (22-30); GFR AFRICAN-AMERICAN > 60; TOTAL PROTEIN 7.3 g/dL (6.3-8.3)
[2017-04-16 07:40] LABS: ALT/SGPT 85 U/L (21-72); BLOOD UREA NITROGEN 21 mg/dL (9-20); CALCIUM 9.2 mg/dl (8.6-10.4); GLUCOSE,RANDOM 160 mg/dL (75-110); MAGNESIUM 2.5 mg/dL (1.6-2.3); PHOSPHOROUS 3.3 mg/dL (2.5-4.5)
[2017-04-16 09:28] LABS: MYELOCYTE 1 % (0-0); NEUTROPHIL 80 % (50-75); TOTAL CELLS COUNTED 100
[2017-04-16] MEDS ORDERED: Influenza Vaccine 60 mcg/0.5 mL SYR (4YR UP) IM ONE (10:00)
[2017-04-16] MEDS ORDERED: Pneumococcal 23-Valent Vaccine IM ONE (10:00)
[2017-04-16] MEDS: Azithromycin 500 MG in Sodium Chloride 0.9% 250 ML IVPB SCH (10:13)
[2017-04-16] MEDS: guaiFENesin 600 mg ER Tab PO SCH ×2 (10:13→18:00)
[2017-04-16 10:47] LABS: ABG ALLEN TEST YES; ARTERIAL BLOOD HGB O2 SAT 91.1 % (95.0-98.0); CARBOXYHEMOGLOBIN 1.8 % (0.5-1.5); DRAW SITE RRA; HHB 6.2 % (0.0-5.0); METHEMOGLOBIN 0.9 % (0.0-3.0)
--- NOTE | 2017-04-16 11:41 | CP.PCM.PN ---
<RobertoyanelisCharlotteYojana - Last Filed: 04/16/17 11:26> Subjective - Date & Time of Evaluation Date of Evaluation: 04/16/17 Time of Evaluation: 10:00 - Subjective Subjective: Medicine Note for Dr. Brito Patient was seen and examined at bedside. Patient reports his breathing has much improved, but still does feel SOB during ambulation. No acute complaints. Denied fever, chills, headache, chest pain, abdominal pain, n/v/d/c, or urinary symptoms. Objective - Vital Signs/Intake and Output Vital Signs (last 24 hours): Temp Pulse Resp BP Pulse Ox 98.0 F 100 H 18 138/76 93 L 04/16/17 08:00 04/16/17 08:00 04/16/17 08:00 04/16/17 08:00 04/16/17 08:00 Intake and Output: 04/16/17 04/16/17 06:59 18:59 Intake Total 460 Balance 460 - Medications Medications: Current Medications Albuterol/Ipratropium (Duoneb 3 Mg/0.5 Mg (3 Ml) Ud) 3 ml INH RQ6 [facility] Last Admin: 04/16/17 07:58 Dose: 3 ml Aspirin (Aspirin Chewable) 81 mg PO DAILY [facility] Guaifenesin (Mucinex La) 600 mg PO BID [facility] Last Admin: 04/16/17 10:13 Dose: 600 mg Azithromycin 500 mg/ Sodium (Chloride) 250 mls @ 166.667 mls/hr IVPB DAILY [facility] Last Admin: 04/16/17 10:13 Dose: 166.667 mls/hr Lisinopril (Zestril) 2.5 mg PO DAILY [facility] Metformin HCl (Glucophage) 500 mg PO DAILY [facility] Methylprednisolone (Solu-Medrol) 60 mg IVP DAILY [facility] Last Admin: 04/16/17 10:13 Dose: 60 mg Pantoprazole Sodium (Protonix Inj) 40 mg IVP DAILY [facility] Last Admin: 04/16/17 10:13 Dose: 40 mg Promethazine HCl/Codeine (Phenergan/Codeine Oral Syrup) 5 ml PO Q4 PRN PRN Reason: Cough Last Admin: 04/15/17 18:36 Dose: 5 ml - Labs Labs: 04/16/17 07:03 04/16/17 07:03 - Additional Findings Additional findings: - Constitutional Appears: Well, Non-toxic, No Acute Distress - Head Exam Head Exam: ATRAUMATIC, NORMOCEPHALIC - Eye Exam Eye Exam: EOMI, Normal appearance, PERRL Pupil Exam: NORMAL ACCOMODATION - ENT Exam ENT Exam: Mucous Membranes Moist, Normal Exam - Neck Exam Neck exam: Positive for: Normal Inspection - Respiratory Exam Respiratory Exam: Decreased Breath Sounds, Rales (Left lower lobe), NORMAL BREATHING PATTERN. absent: Accessory Muscle Use, Clear to Auscultation Bilateral, Wheezes, Respiratory Distress, Stridor Additional comments: examined with NC on 2L O2 - Cardiovascular Exam Cardiovascular Exam: REGULAR RHYTHM, +S1, +S2. absent: Bradycardia, Tachycardia , Diastolic murmur, Irregular Rhythm, Systolic Murmur - GI/Abdominal Exam GI & Abdominal Exam: Normal Bowel Sounds, Soft. absent: Distended, Firm, Guarding, Tenderness - Extremities Exam Extremities exam: Positive for: full ROM, normal capillary refill, normal inspection, pedal pulses present. Negative for: pedal edema - Back Exam Back exam: NORMAL INSPECTION - Neurological Exam Neurological exam: Alert, CN II-XII Intact, Oriented x3 - Psychiatric Exam Psychiatric exam: Normal Affect, Normal Mood - Skin Skin Exam: Dry, Intact, Normal Color, Warm Assessment and Plan - Assessment and Plan (Free Text) Plan: Questionable Pulm HTN * Consulted cytometry technologist Dr Marx- help appreciated * Influenza - negative, strep pneumonia, legionella, mycoplasma - all negative, f/u IgE * PPD (right forearm) placed on 04/13--> 48Hr -negative, 72hr - negative * CXR: no active disease * CT Chest (04/14/17): suboptimal study. no evidence of pulmonary embolus. No evidence of pneumonia or mass lesion in the lungs. hepatic steatosis * ABG ordered today, PO2 = 52 on RA, repeat ABG PO2 = 55 on RA * f/U ECHO: suspected pulm HTN * f/U CXR PA/Lateral * Solumedrol IV 60mg daily will continue to taper * Started Azithromax 500mg IVP daily (04/15/17) * Duonebs q6h INH GUS Pre-peak flow 220, Post peak flow 270 * Mucinex 600mg BID * Phenergan/ Codeine 5ml PO Q4H PRN cough Newly Diagnosed Diabetes * HGA1C- 6.6 * Diabetic Counseling referral * Started on Carbohydrate Consistent Diet * f/u lipid panel * ASA 81mg PO daily * Lisinopril 2.5mg PO daily * Started on Metformin 500mg PO daily Leukocytosis * Downtrending, Most likely 2/2 steroids * Patient on IV steroids * Will monitor CBC daily; if patient becomes febrile will order blood cultures Elevated D-dimer * CXR: no active disease * EKG shows NSR, no ST changes * CT Chest (04/14/17): suboptimal study. no evidence of pulmonary embolus. No evidence of pneumonia or mass lesion in the lungs. hepatic steatosis * Patient low risk for DVT/PE Prophylactic measures * DVT PPX: DVT risk score of 0: SCDs * GI PPX: Protonix 40mg PO daily * Carbohydrate Consistent Diet * PT/OT DW Dr. Brito, Veronica TRIMBLE, PGY-1 <Jen Brito V - Last Filed: 04/18/17 19:09> Objective - Vital Signs/Intake and Output Vital Signs (last 24 hours): Temp Pulse Resp BP Pulse Ox 98.6 F 105 H 20 109/65 93 L 04/18/17 16:00 04/18/17 16:00 04/18/17 16:00 04/18/17 16:00 04/18/17 16:00 Intake and Output: 04/18/17 04/18/17 06:59 18:59 Intake Total 1300 1150 Balance 1300 1150 - Medications Medications: Current Medications Albuterol/Ipratropium (Duoneb 3 Mg/0.5 Mg (3 Ml) Ud) 3 ml INH RQ6 GUS Last Admin: 04/18/17 13:33 Dose: 3 ml Guaifenesin (Mucinex La) 600 mg PO BID GUS Last Admin: 04/18/17 17:21 Dose: 600 mg Sodium Chloride (Sodium Chloride 0.9%) 1,000 mls @ 100 mls/hr IV .Q10H GUS Last Admin: 04/18/17 17:21 Dose: 100 mls/hr Lisinopril (Zestril) 2.5 mg PO DAILY GUS Last Admin: 04/18/17 09:27 Dose: 2.5 mg Metformin HCl (Glucophage) 500 mg PO DAILY GUS Last Admin: 04/17/17 10:32 Dose: 500 mg Moxifloxacin HCl (Avelox) 400 mg PO DAILY [facility] Stop: 04/20/17 10:01 Last Admin: 04/18/17 09:27 Dose: 400 mg Pantoprazole Sodium (Protonix Ec Tab) 40 mg PO DAILY [facility] Last Admin: 04/18/17 09:27 Dose: 40 mg Promethazine HCl/Codeine (Phenergan/Codeine Oral Syrup) 5 ml PO Q4 PRN PRN Reason: Cough Last Admin: 04/18/17 17:21 Dose: 5 ml Rosuvastatin Calcium (Crestor) 10 mg PO HS GUS - Labs Labs: 04/18/17 07:48 04/18/17 07:48 Attending/Attestation - Attestation I have personally seen and examined this patient.: Yes I have fully participated in the care of the patient.: Yes I have reviewed all pertinent clinical information, including history, physical exam and plan: Yes Notes (Text): This is late computer entry for 04/16/17. Patient seen, examined, and case discussed with day-time resident. Patient with no prior history of asthma comes in following repeated use of his rescue inhaler. Patient c/w of Azithromycin 500mg IV q daily. ABG repeated: patient is hypoxic on ABG. Unclear etiology possible pulmonary hypertension suspected. Physical therapy eval placed to see if patient desaturates while with PT: per PT noted, patient is HYPOXIA 85% ROOM AIR AMB 50FX 2 CGA, W/ 3L/M O2 92%--HOME ex and Home O2. Will need to coordinate with pulmonary in regards to home oxygen for the patient. patient is a newly diagnosed diabetic-->no prior a1c to compared to and currently on steroid. will recommend lifestyle modifcations and exercise. Assessment/Plan 1) Dyspnea Hypoxia Possible Bronchitis; Possible pulmonary hypertension * Consulted cytometry technologist Dr Marx- help appreciated * Influenza - negative, f/u strep pneumonia, IgE, legionella, mycoplasma, * PPD (right forearm) placed on 04/13--> 48Hr -negative, 72hr - negative * Echocardiogram (04/16/17): left ventricle is normal size, normal left ventricular wall thickness, left ventricular function is normal, left ventricular ejection fraction is within normal range. normal LV segmental wall motion. Left ventricular diastolic function * Chest xray PA and Lateral (04/16/17): small left pleural effusion with adjacent left basilar consolidative changes. Mild venous congestion. Right hilar prominence. Few distending loops of bowel with the upper and mid abdomen. * CXR: no active disease * Taper Solumedrol IV 60mg qdaily * Duonebs q6h INH GUS (Pre-peak flow 220-->270) * Mucinex 600mg BID * Phenergan/ Codeine 5ml PO Q4H PRN cough * CT Chest (04/14/17): suboptimal study. no evidence of pulmonary embolus. No evidence of pneumonia or mass lesion in the lungs. hepatic steatosis * Start Azithromcyin 500mg IV q daily (active on 04/15/17) 2) Newly diagnosed diabetes * HGA1C- 6.6 * Diabetic Counseling referral * Started on Carbohydrate Consistent Diet * f/u lipid panel in AM * Start ASA 81mg PO daily for cardioprotection * Start Lisinopril 2.5mg PO daily for renoprotection * Started on Metformin 500mg PO daily-->low dose 3) Elevated D-dimer * CXR: no active disease * EKG shows NSR, no ST changes * CT Chest (04/14/17): suboptimal study. no evidence of pulmonary embolus. No evidence of pneumonia or mass lesion in the lungs. hepatic steatosis * Chest xray PA and Lateral (04/16/17): small left pleural effusion with adjacent left basilar consolidative changes. Mild venous congestion. Right hilar prominence. Few distending loops of bowel with the upper and mid abdomen. * Patient low risk for DVT/PE * Echocardiogram (04/16/17): left ventricle is normal size, normal left ventricular wall thickness, left ventricular function is normal, left ventricular ejection fraction is within normal range. normal LV segmental wall motion. Left ventricular diastolic function 4) Leukocytosis * WBC 13.5, no left shift, afebrile on admission * Patient started on IV steroids * Will continue to monitor * Will monitor CBC daily; if patient becomes febrile will order blood cultures * Most likely 2/2 steroids 5) Prophylactic measures * DVT PPX: DVT risk score of 0: SCDs * GI PPX: Protonix 40mg PO daily * Regular diet * PT eval: oxygen saturation while on exertion
--- NOTE | 2017-04-16 14:05 | RAD ---
Chest x-ray two views History: Dyspnea. Comparison: None available. Findings: Small left pleural effusion with adjacent left basilar consolidative changes. Mild venous congestion. Right hilar prominence. Heart size within normal limits. Few distended loops of bowel within the upper and mid abdomen. Impression: Small left pleural effusion with adjacent left basilar consolidative changes. Mild venous congestion. Right hilar prominence. Few distended loops of bowel within the upper and mid abdomen.
--- NOTE | 2017-04-16 15:17 | CARD ---
APPROVED REPORT EXAM: Two-dimensional and M-mode echocardiogram with Doppler and color Doppler. Other Information Quality : GoodRhythm : NSR INDICATION Dyspnea ASTHMA, LEUKOCYTOSIS 2D DIMENSIONS IVSd1.1 (0.7-1.1cm)LVDd3.8 (3.9-5.9cm) PWd1.2 (0.7-1.1cm)LVDs2.7 (2.5-4.0cm) FS (%) 29.0 %LVEF (%)56.5 (>50%) M-Mode DIMENSIONS Left Atrium (MM)3.45 (2.5-4.0cm)Aortic Root2.55 (2.2-3.7cm) Aortic Cusp Exc.1.81 (1.5-2.0cm) Mitral Valve MV E Bquoyrvx11.3cm/sMV A Whspsrpt68.3cm/sE/A ratio1.3 TDI E/Lateral E'0.0E/Medial E'0.0 Tricuspid Valve TR Peak [id number]/sTR Peak Gr.[id number] LEFT VENTRICLE The left ventricle is normal size. There is normal left ventricular wall thickness. The left ventricular function is normal. The left ventricular ejection fraction is within the normal range. There is normal LV segmental wall motion. The left ventricular diastolic function is normal. RIGHT VENTRICLE The right ventricle is normal size. There is normal right ventricular wall thickness. The right ventricular systolic function is normal. ATRIA The left atrium size is normal. The right atrium size is normal. AORTIC VALVE The aortic valve is normal in structure. No aortic regurgitation is present. There is no aortic valvular stenosis. MITRAL VALVE The mitral valve is normal in structure. There is no evidence of mitral valve prolapse. TRICUSPID VALVE The tricuspid valve is normal in structure. There is no tricuspid valve regurgitation noted. PULMONIC VALVE There is trace pulmonic valvular regurgitation. GREAT VESSELS The aortic root is normal in size. The IVC is normal in size and collapses >50% with inspiration. PERICARDIAL EFFUSION There is no pericardial effusion. <Conclusion> The left ventricle is normal size. There is normal left ventricular wall thickness. The left ventricular function is normal. The left ventricular ejection fraction is within the normal range. There is normal LV segmental wall motion. The left ventricular diastolic function is normal.
[2017-04-17] MEDS: Albuterol-Ipratrop 3 mg / 0.5 (3 ml) UD INH SCH ×4 (02:19→20:28)
[2017-04-17 08:05] LABS: BASO % 0.2 % (0.0-2.0); EOS # 0.1 K/uL (0.0-0.7); EOS % 0.7 % (0.0-4.0); HEMATOCRIT 43.5 % (35.0-51.0); LYMPH # 3.8 K/uL (1.0-4.3); LYMPH % 34.9 % (20.0-40.0); MEAN CELL VOLUME 83.2 fL (80.0-94.0); MEAN CORPUSCULAR HEMOGLOBIN 27.9 pg (27.0-31.0); MEAN CORPUSCULAR HGB CONC 33.6 g/dL (33.0-37.0); MEAN PLATELET VOLUME 8.1 fL (7.2-11.7); MONO # 0.7 K/uL (0.0-0.8); MONO % 6.2 % (0.0-10.0); NRBC % 0.1 % (0.0-2.0); RED CELL DISTRIBUTION WIDTH 13.9 % (11.5-14.5); WHITE BLOOD COUNT 10.9 K/uL (4.8-10.8)
[2017-04-17 08:37] LABS: CHLORIDE 100 mmol/L (98-107); SODIUM 136 mmol/L (132-148)
[2017-04-17 08:38] LABS: POTASSIUM 3.8 mmol/L (3.6-5.2)
[2017-04-17 08:39] LABS: CARBON DIOXIDE 25 mmol/L (22-30); CHOLESTEROL 163 mg/dL (0-199); GFR AFRICAN-AMERICAN > 60
[2017-04-17 08:40] LABS: ALB/GLOB RATIO 1.2 (1.0-2.1); ALKALINE PHOSPHATASE 74 U/L (38-126); ALT/SGPT 102 U/L (21-72); AST/SGOT 35 U/L (17-59); BILIRUBIN,TOTAL 0.7 mg/dL (0.2-1.3); BLOOD UREA NITROGEN 22 mg/dL (9-20); CALCIUM 8.6 mg/dl (8.6-10.4); GLUCOSE,RANDOM 95 mg/dL (75-110); PHOSPHOROUS 3.4 mg/dL (2.5-4.5); TOTAL PROTEIN 7.1 g/dL (6.3-8.3)
[2017-04-17 08:41] LABS: MAGNESIUM 2.4 mg/dL (1.6-2.3)
[2017-04-17] MEDS ORDERED: MethylPREDNISolone 40 mg Vial IVP SCH (10:00)
[2017-04-17] MEDS: guaiFENesin 600 mg ER Tab PO SCH ×2 (10:32→17:55)
[2017-04-17] MEDS: Azithromycin 500 MG in Sodium Chloride 0.9% 250 ML IVPB SCH (10:33)
[2017-04-17] MEDS ORDERED: MethylPREDNISolone 40 mg Vial IVP STA (10:47)
[2017-04-17 13:06] LABS: ABG ALLEN TEST POS; ARTERIAL BLOOD HGB O2 SAT 89.7 % (95.0-98.0); CARBOXYHEMOGLOBIN 1.9 % (0.5-1.5); DRAW SITE RRA; HHB 7.5 % (0.0-5.0); METHEMOGLOBIN 0.8 % (0.0-3.0)
[2017-04-17] MEDS ORDERED: Iodixanol 320 MG/ML 100 ML BOTTLE IV ONE (13:58)
--- NOTE | 2017-04-17 15:27 | CP.PCM.PN ---
Addendum entered and electronically signed by Susan Callejas DO 04/17/17 16:25: Right forearm PPD test negative for tuberculosis Original Note: <Susna Callejas - Last Filed: 04/17/17 15:53> Subjective - Date & Time of Evaluation Date of Evaluation: 04/17/17 Time of Evaluation: 15:24 - Subjective Subjective: Progress note for Dr. Brito Patient seen and examined at bedside. Patient states he gets SOB some of the time, but does not have it at the moment. Objective - Vital Signs/Intake and Output Vital Signs (last 24 hours): Temp Pulse Resp BP Pulse Ox 98.3 F 68 20 123/79 94 L 04/17/17 08:11 04/17/17 08:11 04/17/17 08:11 04/17/17 08:11 04/17/17 08:11 Intake and Output: 04/17/17 04/17/17 06:59 18:59 Intake Total 540 490 Balance 540 490 - Medications Medications: Current Medications Albuterol/Ipratropium (Duoneb 3 Mg/0.5 Mg (3 Ml) Ud) 3 ml INH RQ6 [facility] Last Admin: 04/17/17 13:20 Dose: 3 ml Aspirin (Aspirin Chewable) 81 mg PO DAILY [facility] Last Admin: 04/17/17 10:32 Dose: 81 mg Guaifenesin (Mucinex La) 600 mg PO BID [facility] Last Admin: 04/17/17 10:32 Dose: 600 mg Lisinopril (Zestril) 2.5 mg PO DAILY [facility] Last Admin: 04/17/17 10:32 Dose: 2.5 mg Metformin HCl (Glucophage) 500 mg PO DAILY [facility] Last Admin: 04/17/17 10:32 Dose: 500 mg Methylprednisolone (Solu-Medrol) 20 mg IVP DAILY [facility] Stop: 04/18/17 10:01 Moxifloxacin HCl (Avelox) 400 mg PO DAILY [facility] Stop: 04/20/17 10:01 Last Admin: 04/17/17 12:00 Dose: 400 mg Pantoprazole Sodium (Protonix Inj) 40 mg IVP DAILY [facility] Last Admin: 04/17/17 10:32 Dose: 40 mg Promethazine HCl/Codeine (Phenergan/Codeine Oral Syrup) 5 ml PO Q4 PRN PRN Reason: Cough Last Admin: 04/15/17 18:36 Dose: 5 ml - Labs Labs: 04/17/17 07:47 04/17/17 07:47 Assessment and Plan - Assessment and Plan (Free Text) Assessment: poss Pulm HTN - Dr Marx: Patient does not have pulmonary hypertension. * Consulted prescription clerk Dr Marx: Patient does not have pulmonary hypertension . * Influenza - negative, strep pneumonia, legionella, mycoplasma - all negative * f/u IgE - pending * PPD (right forearm) placed on 04/13--> 48Hr -negative, 72hr - negative * CXR: no active disease * CT Chest (04/14/17): suboptimal study. no evidence of pulmonary embolus. No evidence of pneumonia or mass lesion in the lungs. hepatic steatosis * ABG ordered today, PO2 = 52 on RA, repeat ABG PO2 = 55 on RA * ECHO: normal EF * 04/16 CXR PA/Lateral: small left pleural effusion and right hilar prominence * Solumedrol IV 60mg daily will continue to taper * Started Azithromax 500mg IVP daily (04/15/17) * 04/17 Azithromax changed to Avelox d/t elevated ALT * Duonebs q6h INH [facility] Pre-peak flow 220, Post peak flow 270 * Mucinex 600mg BID * Phenergan/ Codeine 5ml PO Q4H PRN cough elevated LFTs ALT: 102 up from 85, discontinued azithromax Newly Diagnosed Diabetes * HGA1C- 6.6 * Diabetic Counseling referral * Started on Carbohydrate Consistent Diet * 04/17 Lipid panel TG 155, LDL 122, HDL 35 * ASA 81mg PO daily * Lisinopril 2.5mg PO daily * Started on Metformin 500mg PO daily Leukocytosis * Downtrending, Most likely 2/2 steroids * Patient on IV steroids * Will monitor CBC daily; if patient becomes febrile will order blood cultures Elevated D-dimer * CXR: no active disease * EKG shows NSR, no ST changes * CT Chest (04/14/17): suboptimal study. no evidence of pulmonary embolus. No evidence of pneumonia or mass lesion in the lungs. hepatic steatosis * Patient low risk for DVT/PE * 04/17 repeat D-Dimer <200 * 04/17 CTA follow up read Prophylactic measures * DVT PPX: DVT risk score of 0: SCDs * GI PPX: Protonix 40mg PO daily * Carbohydrate Consistent Diet * PT/OT Discussed with Dr. Alisha Callejas, DO PGY1 <Jen Brito V - Last Filed: 04/18/17 19:21> Objective - Vital Signs/Intake and Output Vital Signs (last 24 hours): Temp Pulse Resp BP Pulse Ox 98.6 F 105 H 20 109/65 93 L 04/18/17 16:00 04/18/17 16:00 04/18/17 16:00 04/18/17 16:00 04/18/17 16:00 Intake and Output: 04/18/17 04/19/17 18:59 06:59 Intake Total 1150 Balance 1150 - Medications Medications: Current Medications Albuterol/Ipratropium (Duoneb 3 Mg/0.5 Mg (3 Ml) Ud) 3 ml INH RQ6 [facility] Last Admin: 04/18/17 13:33 Dose: 3 ml Guaifenesin (Mucinex La) 600 mg PO BID [facility] Last Admin: 04/18/17 17:21 Dose: 600 mg Sodium Chloride (Sodium Chloride 0.9%) 1,000 mls @ 100 mls/hr IV .Q10H [facility] Last Admin: 04/18/17 17:21 Dose: 100 mls/hr Lisinopril (Zestril) 2.5 mg PO DAILY [facility] Last Admin: 04/18/17 09:27 Dose: 2.5 mg Metformin HCl (Glucophage) 500 mg PO DAILY [facility] Last Admin: 04/17/17 10:32 Dose: 500 mg Moxifloxacin HCl (Avelox) 400 mg PO DAILY [facility] Stop: 04/20/17 10:01 Last Admin: 04/18/17 09:27 Dose: 400 mg Pantoprazole Sodium (Protonix Ec Tab) 40 mg PO DAILY [facility] Last Admin: 04/18/17 09:27 Dose: 40 mg Promethazine HCl/Codeine (Phenergan/Codeine Oral Syrup) 5 ml PO Q4 PRN PRN Reason: Cough Last Admin: 04/18/17 17:21 Dose: 5 ml Rosuvastatin Calcium (Crestor) 10 mg PO HS [facility] - Labs Labs: 04/18/17 07:48 04/18/17 07:48 Attending/Attestation - Attestation I have personally seen and examined this patient.: Yes I have fully participated in the care of the patient.: Yes I have reviewed all pertinent clinical information, including history, physical exam and plan: Yes Notes (Text): This is late computer entry for 04/17/17. Patient seen, examined, and case discussed with day-time resident. Patient remains short of breathe; discussed with patient's nurse Holly who is assisting in translation, pulmonary recommended for repeat CT angio and d- dimer. Patient may still need home oxygen. Per discussion with pulmonary, patient does not have pulmonary hypertension. Cardiology consult to r/o cardiac cause for hypoxia Azithromycin d/c secondary to rise in LFTs-->switch to Avelox to cover to community acquired pneumonia. IV not available on formulary. Assessment/Plan 1) Dyspnea Hypoxia Possible Bronchitis * Consulted prescription clerk Dr Marx- help appreciated * Influenza - negative, f/u strep pneumonia, IgE, legionella, mycoplasma, * PPD (right forearm) placed on 04/13--> 48Hr -negative, 72hr - negative * Echocardiogram (04/16/17): left ventricle is normal size, normal left ventricular wall thickness, left ventricular function is normal, left ventricular ejection fraction is within normal range. normal LV segmental wall motion. Left ventricular diastolic function * Chest xray PA and Lateral (04/16/17): small left pleural effusion with adjacent left basilar consolidative changes. Mild venous congestion. Right hilar prominence. Few distending loops of bowel with the upper and mid abdomen. * CXR: no active disease * Taper Solumedrol IV 60mg qdaily * Duonebs q6h INH [facility] (Pre-peak flow 220-->270) * Mucinex 600mg BID * Phenergan/ Codeine 5ml PO Q4H PRN cough * CT Chest (04/14/17): suboptimal study. no evidence of pulmonary embolus. No evidence of pneumonia or mass lesion in the lungs. hepatic steatosis * CT Angio (04/18/17): visualized portions of the inferior thyroid gland appear unremarkable. Mediastinal and hilar vascular structures appear within normal limits. Heart appears within normal limits of size. No large central or segmental pulmonary embolus evident. Bilateral lower lobe atelectasis or infiltrates. No pleural effusion. No pneumothorax. 6mm right lower lobe calcified granuloma. Limited visualized portions of upper abdomen demonstrates hypoattenuation of the liver consistent with hepatic steatosis. No acute osseous abnormality is detected. * Repeat D-Dimer: neagtive * Start Azithromcyin 500mg IV q daily (active on 04/15/17-06/22-->Switch to Avelox 400mg PO daily 2) Newly diagnosed diabetes * HGA1C- 6.6 * Diabetic Counseling referral * Started on Carbohydrate Consistent Diet * Lipid panel: T, Chol: 163, LDL: 122, HDL: 33 * Start ASA 81mg PO daily for cardioprotection * Start Lisinopril 2.5mg PO daily for renoprotection * Stopped Metformin 500mg PO daily given patient is going for CT angio today; start on IV fluids to prevent contrast induced nephropathy 3) Elevated D-dimer * CXR: no active disease * EKG shows NSR, no ST changes * CT Chest (04/14/17): suboptimal study. no evidence of pulmonary embolus. No evidence of pneumonia or mass lesion in the lungs. hepatic steatosis * Chest xray PA and Lateral (04/16/17): small left pleural effusion with adjacent left basilar consolidative changes. Mild venous congestion. Right hilar prominence. Few distending loops of bowel with the upper and mid abdomen. * Patient low risk for DVT/PE * Echocardiogram (04/16/17): left ventricle is normal size, normal left ventricular wall thickness, left ventricular function is normal, left ventricular ejection fraction is within normal range. normal LV segmental wall motion. Left ventricular diastolic function 4) Leukocytosis * Monitor WBC * Patient started on IV steroids * Will continue to monitor * Will monitor CBC daily; if patient becomes febrile will order blood cultures 5) Prophylactic measures * DVT PPX: DVT risk score of 0: SCDs * GI PPX: Protonix 40mg PO daily * Regular diet * PT eval: oxygen saturation while on exertion
--- NOTE | 2017-04-17 16:16 | CT ---
CTA chest PE protocol Indication: Hypoxia Technique: Contiguous axial images were obtained through the chest with intravenous contrast enhancement. Sagittal and coronal reconstructions were generated and reviewed. This CT exam was performed using 1 or more of the falling dose reduction techniques: Automated exposure control, adjustment of the MAA and/or kV according to patient size, and/or use of iterative reconstruction technique. IV Contrast: 100 cc Visipaque 320 Radiation dose (DLP): 439.33 MGy-cm. Comparison: Chest x-ray performed 04/16/17, CTA chest performed 04/13/17 Findings: Visualized portions of the inferior thyroid gland appear unremarkable. The mediastinal and hilar vascular structures appear within normal limits. The heart appears within normal limits of size. No large central or segmental pulmonary embolus evident. Bilateral lower lobe atelectasis or infiltrates. No pleural effusion. No pneumothorax. 6 mm right lower lobe calcified granuloma. Limited visualized portions of the upper abdomen demonstrates hypoattenuation of the liver consistent with hepatic steatosis. No acute osseous abnormality is detected. Impression: No large central or segmental pulmonary embolus identified. Bilateral lower lobe atelectasis or infiltrates. Hepatic steatosis.
--- NOTE | 2017-04-17 16:49 | CP.PCM.PN ---
Subjective - Date & Time of Evaluation Date of Evaluation: 04/17/17 Time of Evaluation: 10:00 - Subjective Subjective: the patient seen and examined. Lying comfortably in no acute distress Remains hypoxic Denies chest pain, denies fever chills Objective - Vital Signs/Intake and Output Vital Signs (last 24 hours): Temp Pulse Resp BP Pulse Ox 98.2 F 83 20 120/78 93 L 04/17/17 16:00 04/17/17 16:00 04/17/17 16:00 04/17/17 16:00 04/17/17 16:00 Intake and Output: 04/17/17 04/17/17 06:59 18:59 Intake Total 540 490 Balance 540 490 - Medications Medications: Current Medications Albuterol/Ipratropium (Duoneb 3 Mg/0.5 Mg (3 Ml) Ud) 3 ml INH RQ6 [facility] Last Admin: 04/17/17 13:20 Dose: 3 ml Aspirin (Aspirin Chewable) 81 mg PO DAILY [facility] Last Admin: 04/17/17 10:32 Dose: 81 mg Guaifenesin (Mucinex La) 600 mg PO BID [facility] Last Admin: 04/17/17 10:32 Dose: 600 mg Lisinopril (Zestril) 2.5 mg PO DAILY [facility] Last Admin: 04/17/17 10:32 Dose: 2.5 mg Metformin HCl (Glucophage) 500 mg PO DAILY [facility] Last Admin: 04/17/17 10:32 Dose: 500 mg Methylprednisolone (Solu-Medrol) 20 mg IVP DAILY [facility] Stop: 04/18/17 10:01 Moxifloxacin HCl (Avelox) 400 mg PO DAILY [facility] Stop: 04/20/17 10:01 Last Admin: 04/17/17 12:00 Dose: 400 mg Pantoprazole Sodium (Protonix Inj) 40 mg IVP DAILY [facility] Last Admin: 04/17/17 10:32 Dose: 40 mg Promethazine HCl/Codeine (Phenergan/Codeine Oral Syrup) 5 ml PO Q4 PRN PRN Reason: Cough Last Admin: 04/15/17 18:36 Dose: 5 ml - Labs Labs: 04/17/17 07:47 04/17/17 07:47 - Head Exam Head Exam: ATRAUMATIC, NORMOCEPHALIC - Eye Exam Eye Exam: Normal appearance - ENT Exam ENT Exam: Mucous Membranes Moist - Neck Exam Neck Exam: Normal Inspection - Respiratory Exam Respiratory Exam: Rales - Cardiovascular Exam Cardiovascular Exam: REGULAR RHYTHM - GI/Abdominal Exam GI & Abdominal Exam: Soft, Normal Bowel Sounds Assessment and Plan (1) Hypoxia Assessment & Plan: repeat CT angio showed no pulmonary embolism but consistent with bilateral lower lung infiltrate/atelectasis Continue IV antibiotics Continue IV steroids and bronchodilators Consider bubble test to rule out shunting Status: Acute (2) Asthma exacerbation Status: Acute
[2017-04-18] MEDS: Albuterol-Ipratrop 3 mg / 0.5 (3 ml) UD INH SCH ×4 (01:35→20:10)
[2017-04-18] MEDS: Sodium Chloride 0.9% 1,000 ML IV SCH ×3 (05:08→21:16)
--- NOTE | 2017-04-18 07:46 | CP.PCM.PN ---
<Aditi Torres - Last Filed: 04/18/17 13:37> Subjective - Date & Time of Evaluation Date of Evaluation: 04/18/17 Time of Evaluation: 07:46 - Subjective Subjective: Medicine Progress Note for Dr. Brito Patient was seen and examined at bedside in no acute distress. Patient reports he is feeling well and has no new complaints. He reports his breathing has improved. He reports he is tolerating his diet, ambulating without difficulty, and has normal bowel movements. Patient currently denies having chest pain, abdominal pain, shortness of breath or difficulty breathing, nausea, vomiting, and fevers. Objective - Vital Signs/Intake and Output Vital Signs (last 24 hours): Temp Pulse Resp BP Pulse Ox 98.7 F 82 20 118/73 95 04/17/17 23:59 04/17/17 23:59 04/17/17 23:59 04/17/17 23:59 04/17/17 23:59 Intake and Output: 04/18/17 04/18/17 06:59 18:59 Intake Total 1300 Balance 1300 - Medications Medications: Current Medications Albuterol/Ipratropium (Duoneb 3 Mg/0.5 Mg (3 Ml) Ud) 3 ml INH RQ6 [facility] Last Admin: 04/18/17 07:30 Dose: 3 ml Aspirin (Aspirin Chewable) 81 mg PO DAILY [facility] Last Admin: 04/17/17 10:32 Dose: 81 mg Guaifenesin (Mucinex La) 600 mg PO BID [facility] Last Admin: 04/17/17 17:55 Dose: 600 mg Sodium Chloride (Sodium Chloride 0.9%) 1,000 mls @ 100 mls/hr IV .Q10H [facility] Lisinopril (Zestril) 2.5 mg PO DAILY [facility] Last Admin: 04/17/17 10:32 Dose: 2.5 mg Metformin HCl (Glucophage) 500 mg PO DAILY [facility] Last Admin: 04/17/17 10:32 Dose: 500 mg Methylprednisolone (Solu-Medrol) 20 mg IVP DAILY [facility] Stop: 04/18/17 10:01 Moxifloxacin HCl (Avelox) 400 mg PO DAILY [facility] Stop: 04/20/17 10:01 Last Admin: 04/17/17 12:00 Dose: 400 mg Pantoprazole Sodium (Protonix Ec Tab) 40 mg PO DAILY [facility] Promethazine HCl/Codeine (Phenergan/Codeine Oral Syrup) 5 ml PO Q4 PRN PRN Reason: Cough Last Admin: 04/15/17 18:36 Dose: 5 ml - Labs Labs: 04/17/17 07:47 04/17/17 07:47 - Constitutional Appears: No Acute Distress - Head Exam Head Exam: ATRAUMATIC, NORMAL INSPECTION - Eye Exam Eye Exam: EOMI, Normal appearance - ENT Exam ENT Exam: Mucous Membranes Moist - Respiratory Exam Respiratory Exam: Rales (bilaterally), NORMAL BREATHING PATTERN. absent: Respiratory Distress (venti mask) - Cardiovascular Exam Cardiovascular Exam: REGULAR RHYTHM, +S1, +S2. absent: Murmur - GI/Abdominal Exam GI & Abdominal Exam: Soft, Normal Bowel Sounds. absent: Distended, Tenderness, Mass - Extremities Exam Extremities Exam: Normal Inspection. absent: Calf Tenderness, Pedal Edema, Tenderness - Neurological Exam Neurological Exam: Alert, Awake, Oriented x3 - Psychiatric Exam Psychiatric exam: Normal Affect, Normal Mood - Skin Skin Exam: Dry, Intact, Normal Color, Warm Assessment and Plan - Assessment and Plan (Free Text) Assessment: Pneumonia * 04/16 CXR PA/Lateral: small left pleural effusion and right hilar prominence * Continue Avelox 400mg PO daily * 04/17 Azithromax changed to Avelox d/t elevated ALT * Solumedrol IV 60mg daily will continue to taper * Duonebs q6h INH GUS Pre-peak flow 220, Post peak flow 270 * Mucinex 600mg BID * Phenergan/ Codeine 5ml PO Q4H PRN cough Hypoxia/Shortness of breath * Consulted data scientist Dr Marx: Patient does not have pulmonary hypertension. * Consulted Cardiology- Dr. Duron, help appreciated * As per Dr. Duron, patient's hypoxia/SOB is likely secondary to atypical pneumonia and not cardiac related; no GISEL with bubble study needed at this time. * Influenza - negative, strep pneumonia, legionella, mycoplasma - all negative * IgE - 101, within normal limits * PPD (right forearm) placed on 04/13--> 48Hr -negative, 72hr - negative * CXR: no active disease * CT Chest (04/14/17): suboptimal study. no evidence of pulmonary embolus. No evidence of pneumonia or mass lesion in the lungs. hepatic steatosis * ABG ordered today, PO2 = 52 on RA, repeat ABG PO2 = 55 on RA * ECHO: normal EF (56.5%) * 04/16 CXR PA/Lateral: small left pleural effusion and right hilar prominence * Solumedrol IV 60mg daily will continue to taper * Continue Avelox 400mg PO daily (04/17 Azithromax changed to Avelox d/t elevated ALT) * Duonebs q6h INH GUS Pre-peak flow 220, Post peak flow 270 * Mucinex 600mg BID * Phenergan/ Codeine 5ml PO Q4H PRN cough Elevated LFTs ALT: 102 up from 85, discontinued Azithromax ALT: 112 (04/18/17) Newly Diagnosed Diabetes * HGA1C- 6.6 * Diabetic Counseling referral * Started on Carbohydrate Consistent Diet * 04/17 Lipid panel TG 155, LDL 122, HDL 35 * Discontinued ASA 81mg PO daily as per Dr Duron * Lisinopril 2.5mg PO daily * Metformin 500mg PO daily (Held on 04/17/17 due to imagining w/contrast; will restart on 04/19/17) Leukocytosis * Downtrending, Most likely 2/2 steroids * Patient on IV steroids * Will monitor CBC daily; if patient becomes febrile will order blood cultures Elevated D-dimer * CXR: no active disease * EKG shows NSR, no ST changes * CT Chest (04/14/17): suboptimal study. no evidence of pulmonary embolus. No evidence of pneumonia or mass lesion in the lungs. hepatic steatosis * Patient low risk for DVT/PE * 04/17 repeat D-Dimer <200 * 04/17 CTA: no evidence of PE; bilateral lower lobe atelectasis or infilatrates ; hepatic steatosis Prophylactic measures * DVT PPX: DVT risk score of 0: SCDs * GI PPX: Protonix 40mg PO daily * Carbohydrate Consistent Diet * PT/OT <Jen Brito V - Last Filed: 04/18/17 23:05> Objective - Vital Signs/Intake and Output Vital Signs (last 24 hours): Temp Pulse Resp BP Pulse Ox 98.6 F 105 H 20 109/65 93 L 04/18/17 16:00 04/18/17 16:00 04/18/17 16:00 04/18/17 16:00 04/18/17 16:00 Intake and Output: 04/18/17 04/19/17 18:59 06:59 Intake Total 1150 Balance 1150 - Medications Medications: Current Medications Albuterol/Ipratropium (Duoneb 3 Mg/0.5 Mg (3 Ml) Ud) 3 ml INH RQ6 [facility] Last Admin: 04/18/17 13:33 Dose: 3 ml Guaifenesin (Mucinex La) 600 mg PO BID [facility] Last Admin: 04/18/17 17:21 Dose: 600 mg Sodium Chloride (Sodium Chloride 0.9%) 1,000 mls @ 100 mls/hr IV .Q10H [facility] Last Admin: 04/18/17 17:21 Dose: 100 mls/hr Lisinopril (Zestril) 2.5 mg PO DAILY [facility] Last Admin: 04/18/17 09:27 Dose: 2.5 mg Metformin HCl (Glucophage) 500 mg PO DAILY [facility] Last Admin: 04/17/17 10:32 Dose: 500 mg Moxifloxacin HCl (Avelox) 400 mg PO DAILY [facility] Stop: 04/20/17 10:01 Last Admin: 04/18/17 09:27 Dose: 400 mg Pantoprazole Sodium (Protonix Ec Tab) 40 mg PO DAILY [facility] Last Admin: 04/18/17 09:27 Dose: 40 mg Promethazine HCl/Codeine (Phenergan/Codeine Oral Syrup) 5 ml PO Q4 PRN PRN Reason: Cough Last Admin: 04/18/17 17:21 Dose: 5 ml Rosuvastatin Calcium (Crestor) 10 mg PO HS [facility] - Labs Labs: 04/18/17 07:48 04/18/17 07:48 Attending/Attestation - Attestation I have personally seen and examined this patient.: Yes I have fully participated in the care of the patient.: Yes I have reviewed all pertinent clinical information, including history, physical exam and plan: Yes Notes (Text): Patient seen, examined, and case discussed with day-time resident. Patient seen and examined. patient reports productive cough. Patient is on antibiotic to cover for pneumonia. Cardiology seen and evaluated the patient, if patient condition does not improve then for GISEL/bubble study. Discussed with pulmonary, monitor patient over the weekend, and will need a follow-up ABG to monitor hypoxia. Will restart patient on Metformin tomorrow Discontinue Aspirin. Assessment/Plan 1) Dyspnea Hypoxia Possible Bronchitis * Consulted data scientist Dr Marx- help appreciated * Influenza - negative, f/u strep pneumonia, IgE, legionella, mycoplasma, * PPD (right forearm) placed on 04/13--> 48Hr -negative, 72hr - negative * Echocardiogram (04/16/17): left ventricle is normal size, normal left ventricular wall thickness, left ventricular function is normal, left ventricular ejection fraction is within normal range. normal LV segmental wall motion. Left ventricular diastolic function * Chest xray PA and Lateral (04/16/17): small left pleural effusion with adjacent left basilar consolidative changes. Mild venous congestion. Right hilar prominence. Few distending loops of bowel with the upper and mid abdomen. * CXR: no active disease * Taper Solumedrol IV 60mg qdaily * Duonebs q6h INH GUS (Pre-peak flow 220-->270) * Mucinex 600mg BID * Phenergan/ Codeine 5ml PO Q4H PRN cough * CT Chest (04/14/17): suboptimal study. no evidence of pulmonary embolus. No evidence of pneumonia or mass lesion in the lungs. hepatic steatosis * CT Angio (04/18/17): visualized portions of the inferior thyroid gland appear unremarkable. Mediastinal and hilar vascular structures appear within normal limits. Heart appears within normal limits of size. No large central or segmental pulmonary embolus evident. Bilateral lower lobe atelectasis or infiltrates. No pleural effusion. No pneumothorax. 6mm right lower lobe calcified granuloma. Limited visualized portions of upper abdomen demonstrates hypoattenuation of the liver consistent with hepatic steatosis. No acute osseous abnormality is detected. * Repeat D-Dimer: neagtive * Start Azithromcyin 500mg IV q daily (active on 04/15/17-06/22-->Switch to Avelox 400mg PO daily 2) Newly diagnosed diabetes * HGA1C- 6.6 * Diabetic Counseling referral * Started on Carbohydrate Consistent Diet * Lipid panel: T, Chol: 163, LDL: 122, HDL: 33 * D/C ASA 81mg PO daily for cardioprotection * Start Lisinopril 2.5mg PO daily for renoprotection * Stopped Metformin 500mg PO daily given patient is going for CT angio yesterday; start on IV fluids to prevent contrast induced nephropathy 3) Elevated D-dimer * CXR: no active disease * EKG shows NSR, no ST changes * CT Chest (04/14/17): suboptimal study. no evidence of pulmonary embolus. No evidence of pneumonia or mass lesion in the lungs. hepatic steatosis * Chest xray PA and Lateral (04/16/17): small left pleural effusion with adjacent left basilar consolidative changes. Mild venous congestion. Right hilar prominence. Few distending loops of bowel with the upper and mid abdomen. * Patient low risk for DVT/PE * Echocardiogram (04/16/17): left ventricle is normal size, normal left ventricular wall thickness, left ventricular function is normal, left ventricular ejection fraction is within normal range. normal LV segmental wall motion. Left ventricular diastolic function 4) Leukocytosis * Monitor WBC * Patient started on IV steroids * Will continue to monitor * Will monitor CBC daily; if patient becomes febrile will order blood cultures 5) Prophylactic measures * DVT PPX: DVT risk score of 0: SCDs * GI PPX: Protonix 40mg PO daily * Regular diet * PT eval: oxygen saturation while on exertion
[2017-04-18 08:03] LABS: BASO # 0.1 K/uL (0.0-0.2); BASO % 0.5 % (0.0-2.0); EOS # 0.1 K/uL (0.0-0.7); EOS % 1.2 % (0.0-4.0); HEMATOCRIT 44.3 % (35.0-51.0); LYMPH # 3.9 K/uL (1.0-4.3); LYMPH % 35.6 % (20.0-40.0); MEAN CELL VOLUME 82.5 fL (80.0-94.0); MEAN PLATELET VOLUME 8.2 fL (7.2-11.7); MONO # 0.5 K/uL (0.0-0.8); MONO % 4.5 % (0.0-10.0); NRBC % 0.1 % (0.0-2.0); RED CELL DISTRIBUTION WIDTH 14.5 % (11.5-14.5); WHITE BLOOD COUNT 10.9 K/uL (4.8-10.8)
[2017-04-18 08:31] LABS: CHLORIDE 101 mmol/L (98-107)
[2017-04-18 08:32] LABS: POTASSIUM 3.7 mmol/L (3.6-5.2); SODIUM 135 mmol/L (132-148)
[2017-04-18 08:34] LABS: ALB/GLOB RATIO 1.2 (1.0-2.1); ALKALINE PHOSPHATASE 70 U/L (38-126); AST/SGOT 29 U/L (17-59); BILIRUBIN,TOTAL 0.8 mg/dL (0.2-1.3); CARBON DIOXIDE 23 mmol/L (22-30); GFR AFRICAN-AMERICAN > 60; TOTAL PROTEIN 6.8 g/dL (6.3-8.3)
[2017-04-18 08:35] LABS: ALT/SGPT 112 U/L (21-72); BLOOD UREA NITROGEN 21 mg/dL (9-20); CALCIUM 8.5 mg/dl (8.6-10.4); GLUCOSE,RANDOM 90 mg/dL (75-110); MAGNESIUM 2.3 mg/dL (1.6-2.3); PHOSPHOROUS 4.2 mg/dL (2.5-4.5)
[2017-04-18] MEDS: guaiFENesin 600 mg ER Tab PO SCH ×2 (09:27→17:21)
[2017-04-18] MEDS: Pantoprazole 40 mg EC Tab PO SCH (09:27)
[2017-04-18] MEDS: Promethazine/Cod 6.25mg-10mg/5ml Syr UD PO PRN ×3 (09:52→21:15)
[2017-04-18] MEDS ORDERED: MethylPREDNISolone 40 mg Vial IVP SCH ×2 (10:00)
--- NOTE | 2017-04-18 12:06 | CP.PCM.CON ---
History of Present Illness - History of Present Illness History of Present Illness: Jorge Morelos DO PGY1 - Cardiology Consult Note for Dr. Duron Consultation for dyspnea HPI: 36yo lao speaking male with no PMH presented to the ER complaining of SOB for the past week. Patient said one week ago woke up with a subjective fever , then started coughing, then starting having some SOB. Patient has tried Albuterol inhaler for this problem (which he was recently prescribed when he went to a different ER for the same problem) which provides only mild relief. Patient admits to bilateral chest pain associated with the cough, no chest pain at rest or with activity. No palpitations. No leg pain at rest or with walking. No leg swelling. He says nothing in particular makes the SOB worse, but it improves when he rests. He has never had this problem before. He denies recent travel, recent illness, sick contacts. 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 PMHx: denies; no history of congenital heart disease in self or family. Social Hx: Denies tobacco use, denies alcohol use, denies illicit drug use Allergy: none Surgical Hx: appendectomy in 2010 Hospitalizations: appendectomy in 2010 Family Hx: mother DM, unknown heart disease diagnosed in late 60's; father healthy; older sister asthma; no family history of early cardiac/sudden Medicine: none ROS: Negative except as in HPI Past Patient History - Past Medical History & Family History Past Medical History?: No - Past Social History Smoking Status: Never Smoked - CARDIAC Hx Cardiac Disorders: No - PULMONARY Hx Asthma: Yes - NEUROLOGICAL Hx Neurological Disorder: No - HEENT Hx HEENT Problems: No - RENAL Hx Chronic Kidney Disease: No - ENDOCRINE/METABOLIC Hx Endocrine Disorders: No - HEMATOLOGICAL/ONCOLOGICAL Hx Blood Disorders: No - INTEGUMENTARY Hx Dermatological Problems: No - MUSCULOSKELETAL/RHEUMATOLOGICAL Hx Musculoskeletal Disorders: No Hx Falls: No - GASTROINTESTINAL Hx Gastrointestinal Disorders: No - GENITOURINARY/GYNECOLOGICAL Hx Genitourinary Disorders: No - PSYCHIATRIC Hx Substance Use: No - SURGICAL HISTORY Hx Appendectomy: Yes - ANESTHESIA Hx Anesthesia: Yes Hx Anesthesia Reactions: No Hx Malignant Hyperthermia: No Has any member of the family had a problem w/ anesthesia?: No Meds Allergies/Adverse Reactions: Allergies Allergy/AdvReac Type Severity Reaction Status Date / Time No Known Allergies Allergy Verified 04/13/17 07:40 - Medications Medications: Current Medications Albuterol/Ipratropium (Duoneb 3 Mg/0.5 Mg (3 Ml) Ud) 3 ml INH RQ6 [facility] Last Admin: 04/18/17 07:30 Dose: 3 ml Aspirin (Aspirin Chewable) 81 mg PO DAILY [facility] Last Admin: 04/18/17 09:27 Dose: 81 mg Guaifenesin (Mucinex La) 600 mg PO BID [facility] Last Admin: 04/18/17 09:27 Dose: 600 mg Sodium Chloride (Sodium Chloride 0.9%) 1,000 mls @ 100 mls/hr IV .Q10H [facility] Last Admin: 04/18/17 05:08 Dose: Not Given Lisinopril (Zestril) 2.5 mg PO DAILY [facility] Last Admin: 04/18/17 09:27 Dose: 2.5 mg Metformin HCl (Glucophage) 500 mg PO DAILY [facility] Last Admin: 04/17/17 10:32 Dose: 500 mg Moxifloxacin HCl (Avelox) 400 mg PO DAILY [facility] Stop: 04/20/17 10:01 Last Admin: 04/18/17 09:27 Dose: 400 mg Pantoprazole Sodium (Protonix Ec Tab) 40 mg PO DAILY [facility] Last Admin: 04/18/17 09:27 Dose: 40 mg Promethazine HCl/Codeine (Phenergan/Codeine Oral Syrup) 5 ml PO Q4 PRN PRN Reason: Cough Last Admin: 04/18/17 09:52 Dose: 5 ml Physical Exam - Constitutional Appears: Non-toxic, No Acute Distress - Head Exam Head Exam: ATRAUMATIC, NORMOCEPHALIC - Eye Exam Eye Exam: EOMI, Normal appearance ( ) - ENT Exam ENT Exam: Mucous Membranes Moist - Respiratory Exam Respiratory Exam: NORMAL BREATHING PATTERN Additional comments: Saturating well on 3L NC Bibasilar rales - Cardiovascular Exam Cardiovascular Exam: RRR, +S1, +S2, Systolic Murmur - GI/Abdominal Exam GI & Abdominal Exam: Soft. absent: Tenderness - Extremities Exam Extremities exam: Negative for: calf tenderness, pedal edema - Neurological Exam Neurological exam: Alert, Oriented x3 - Psychiatric Exam Psychiatric exam: Normal Affect, Normal Mood - Skin Skin Exam: Dry, Intact Results - Vital Signs Recent Vital Signs: Last Vital Signs Temp 98.0 F 04/18/17 08:08 Pulse 68 04/18/17 08:08 Resp 20 04/18/17 08:08 BP 107/68 04/18/17 08:08 Pulse Ox 97 04/18/17 08:08 - Labs Result Diagrams: 04/18/17 07:48 04/18/17 07:48 Labs: Laboratory Results - last 24 hr 04/17/17 04/17/17 04/17/17 11:54 13:00 14:18 WBC RBC Hgb Hct MCV MCH MCHC RDW Plt Count MPV Neut % (Auto) Lymph % (Auto) [place] % (Auto) Eos % (Auto) Baso % (Auto) Neut # Lymph # [place] # Eos # Baso # D-Dimer, Quantitative < 200 Puncture Site Rra pCO2 37 pO2 52 L HCO3 26.2 ABG pH 7.45 ABG Total CO2 26.8 ABG O2 Saturation 92.3 L ABG Base Excess 1.9 ABG Hemoglobin 14.9 ABG Carboxyhemoglobin 1.9 H POC ABG HHb (Measured) 7.5 H ABG Methemoglobin 0.8 [place] Test Pos A-a O2 Difference 51.0 Respiratory Index 1.0 Hgb O2 Saturation 89.7 L FiO2 21.0 Sodium Potassium Chloride Carbon Dioxide Anion Gap BUN Creatinine Est GFR ( Amer) Est GFR (Non-Af Amer) POC Glucose (mg/dL) 213 H Random Glucose Calcium Phosphorus Magnesium Total Bilirubin AST ALT Alkaline Phosphatase Total Protein Albumin Globulin Albumin/Globulin Ratio 04/17/17 04/17/17 04/18/17 16:31 21:43 07:02 WBC RBC Hgb Hct MCV MCH MCHC RDW Plt Count MPV Neut % (Auto) Lymph % (Auto) [place] % (Auto) Eos % (Auto) Baso % (Auto) Neut # Lymph # [place] # Eos # Baso # D-Dimer, Quantitative Puncture Site pCO2 pO2 HCO3 ABG pH ABG Total CO2 ABG O2 Saturation ABG Base Excess ABG Hemoglobin ABG Carboxyhemoglobin POC ABG HHb (Measured) ABG Methemoglobin [place] Test A-a O2 Difference Respiratory Index Hgb O2 Saturation FiO2 Sodium Potassium Chloride Carbon Dioxide Anion Gap BUN Creatinine Est GFR ( Amer) Est GFR (Non-Af Amer) POC Glucose (mg/dL) 165 H 142 H 86 Random Glucose Calcium Phosphorus Magnesium Total Bilirubin AST ALT Alkaline Phosphatase Total Protein Albumin Globulin Albumin/Globulin Ratio 04/18/17 04/18/17 04/18/17 07:48 07:48 11:40 WBC 10.9 H RBC 5.37 Hgb 15.1 Hct 44.3 MCV 82.5 MCH 28.0 MCHC 34.0 RDW 14.5 Plt Count 528 H MPV 8.2 Neut % (Auto) 58.2 Lymph % (Auto) 35.6 [place] % (Auto) 4.5 Eos % (Auto) 1.2 Baso % (Auto) 0.5 Neut # 6.3 Lymph # 3.9 [place] # 0.5 Eos # 0.1 Baso # 0.1 D-Dimer, Quantitative Puncture Site pCO2 pO2 HCO3 ABG pH ABG Total CO2 ABG O2 Saturation ABG Base Excess ABG Hemoglobin ABG Carboxyhemoglobin POC ABG HHb (Measured) ABG Methemoglobin [place] Test A-a O2 Difference Respiratory Index Hgb O2 Saturation FiO2 Sodium 135 Potassium 3.7 Chloride 101 Carbon Dioxide 23 Anion Gap 14 BUN 21 H Creatinine 0.9 Est GFR ( Amer) > 60 Est GFR (Non-Af Amer) > 60 POC Glucose (mg/dL) 123 H Random Glucose 90 Calcium 8.5 L Phosphorus 4.2 Magnesium 2.3 Total Bilirubin 0.8 AST 29 ALT 112 H Alkaline Phosphatase 70 Total Protein 6.8 Albumin 3.7 Globulin 3.1 Albumin/Globulin Ratio 1.2 Assessment & Plan - Assessment and Plan (Free Text) Assessment: 36 yo M with no PMH presents with 1 week of cough, dyspnea, and subjective fevers; consultation to r/o cardiac etiology of dyspnea and hypoxemia Plan: 1. 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 DM - new diagnosis - A1c 6.6 - Started on Metformin - Agree with low dose ACEi for renal protection - DM is not a CAD equivalent in this young, low-risk patient; According to ADA, AHA/ACC guideline, ASA not indicated for primary/secondary prevention in males < 50 at low risk for cardiovascular disease 3. Hyperlipidemia - Lipid panel shows mildly elevated TG, high-normal Total cholesterol and LDL, and low-normal HDL - Start Statin; patient may be able to discontinue this in favor of lifestyle modifications with outpatient follow up, restart if no improvement Patient seen, discussed, and reviewed with attending
--- NOTE | 2017-04-18 18:13 | CP.PCM.PN ---
Subjective - Date & Time of Evaluation Date of Evaluation: 04/18/17 Time of Evaluation: 16:10 - Subjective Subjective: Patient seen and examined. Sitting comfortably in no acute distress Denies cough, denies fever or chills, denies chest pain Objective - Vital Signs/Intake and Output Vital Signs (last 24 hours): Temp Pulse Resp BP Pulse Ox 98.6 F 105 H 20 109/65 93 L 04/18/17 16:00 04/18/17 16:00 04/18/17 16:00 04/18/17 16:00 04/18/17 16:00 Intake and Output: 04/18/17 04/18/17 06:59 18:59 Intake Total 1300 1150 Balance 1300 1150 - Medications Medications: Current Medications Albuterol/Ipratropium (Duoneb 3 Mg/0.5 Mg (3 Ml) Ud) 3 ml INH RQ6 [facility] Last Admin: 04/18/17 13:33 Dose: 3 ml Guaifenesin (Mucinex La) 600 mg PO BID [facility] Last Admin: 04/18/17 17:21 Dose: 600 mg Sodium Chloride (Sodium Chloride 0.9%) 1,000 mls @ 100 mls/hr IV .Q10H [facility] Last Admin: 04/18/17 17:21 Dose: 100 mls/hr Lisinopril (Zestril) 2.5 mg PO DAILY [facility] Last Admin: 04/18/17 09:27 Dose: 2.5 mg Metformin HCl (Glucophage) 500 mg PO DAILY [facility] Last Admin: 04/17/17 10:32 Dose: 500 mg Moxifloxacin HCl (Avelox) 400 mg PO DAILY [facility] Stop: 04/20/17 10:01 Last Admin: 04/18/17 09:27 Dose: 400 mg Pantoprazole Sodium (Protonix Ec Tab) 40 mg PO DAILY [facility] Last Admin: 04/18/17 09:27 Dose: 40 mg Promethazine HCl/Codeine (Phenergan/Codeine Oral Syrup) 5 ml PO Q4 PRN PRN Reason: Cough Last Admin: 04/18/17 17:21 Dose: 5 ml Rosuvastatin Calcium (Crestor) 10 mg PO HS [facility] - Labs Labs: 04/18/17 07:48 04/18/17 07:48 - Head Exam Head Exam: ATRAUMATIC, NORMOCEPHALIC - Eye Exam Eye Exam: Normal appearance - ENT Exam ENT Exam: Mucous Membranes Moist - Respiratory Exam Respiratory Exam: Rales - Cardiovascular Exam Cardiovascular Exam: REGULAR RHYTHM - GI/Abdominal Exam GI & Abdominal Exam: Soft, Normal Bowel Sounds - Extremities Exam Extremities Exam: Normal Inspection Assessment and Plan (1) Hypoxia Assessment & Plan: Continue antibiotic for pneumonia Follow-up ABG before discharge Continue steroids and nebulizer treatment Status: Acute (2) Asthma exacerbation Status: Acute
--- NOTE | 2017-04-19 00:53 | CP.PCM.PN ---
<Anup Martina - Last Filed: 04/19/17 00:50> Subjective - Date & Time of Evaluation Date of Evaluation: 04/19/17 Time of Evaluation: 00:51 - Subjective Subjective: Medicine Note for Dr. Brito Patient seen and examined at bedside. Patient resting comfortably in bed. No acute complaints. Denied fever, chills, headache, chest pain, SOB, abdominal pain, n/v/d/c, or urinary symptoms. Objective - Vital Signs/Intake and Output Vital Signs (last 24 hours): Temp Pulse Resp BP Pulse Ox 98.4 F 73 16 100/59 L 98 04/19/17 00:00 04/19/17 00:00 04/19/17 00:00 04/19/17 00:00 04/19/17 00:00 Intake and Output: 04/18/17 04/19/17 18:59 06:59 Intake Total 1150 Balance 1150 - Medications Medications: Current Medications Albuterol/Ipratropium (Duoneb 3 Mg/0.5 Mg (3 Ml) Ud) 3 ml INH RQ6 [facility] Last Admin: 04/18/17 20:10 Dose: 3 ml Guaifenesin (Mucinex La) 600 mg PO BID [facility] Last Admin: 04/18/17 17:21 Dose: 600 mg Sodium Chloride (Sodium Chloride 0.9%) 1,000 mls @ 100 mls/hr IV .Q10H [facility] Last Admin: 04/18/17 21:16 Dose: 100 mls/hr Lisinopril (Zestril) 2.5 mg PO DAILY [facility] Last Admin: 04/18/17 09:27 Dose: 2.5 mg Metformin HCl (Glucophage) 500 mg PO DAILY [facility] Last Admin: 04/17/17 10:32 Dose: 500 mg Moxifloxacin HCl (Avelox) 400 mg PO DAILY [facility] Stop: 04/20/17 10:01 Last Admin: 04/18/17 09:27 Dose: 400 mg Pantoprazole Sodium (Protonix Ec Tab) 40 mg PO DAILY [facility] Last Admin: 04/18/17 09:27 Dose: 40 mg Promethazine HCl/Codeine (Phenergan/Codeine Oral Syrup) 5 ml PO Q4 PRN PRN Reason: Cough Last Admin: 04/18/17 21:15 Dose: 5 ml Rosuvastatin Calcium (Crestor) 10 mg PO HS GUS Last Admin: 04/18/17 21:15 Dose: 10 mg - Labs Labs: 04/18/17 07:48 04/18/17 07:48 - Additional Findings Additional findings: - Constitutional Appears: No Acute Distress - Head Exam Head Exam: ATRAUMATIC, NORMAL INSPECTION - Eye Exam Eye Exam: EOMI, Normal appearance - ENT Exam ENT Exam: Mucous Membranes Moist - Respiratory Exam Respiratory Exam: Rales (bilaterally), NORMAL BREATHING PATTERN. absent: Respiratory Distress (venti mask) - Cardiovascular Exam Cardiovascular Exam: REGULAR RHYTHM, +S1, +S2. absent: Murmur - GI/Abdominal Exam GI & Abdominal Exam: Soft, Normal Bowel Sounds. absent: Distended, Tenderness, Mass - Extremities Exam Extremities Exam: Normal Inspection. absent: Calf Tenderness, Pedal Edema, Tenderness - Neurological Exam Neurological Exam: Alert, Awake, Oriented x3 - Psychiatric Exam Psychiatric exam: Normal Affect, Normal Mood - Skin Skin Exam: Dry, Intact, Normal Color, Warm Assessment and Plan - Assessment and Plan (Free Text) Plan: 1) Dyspnea Hypoxia Possible Bronchitis * Consulted scabbler Dr Marx- help appreciated * Influenza - negative, f/u strep pneumonia, IgE, legionella, mycoplasma, * PPD (right forearm) placed on 04/13--> 48Hr -negative, 72hr - negative * Echocardiogram (04/16/17): left ventricle is normal size, normal left ventricular wall thickness, left ventricular function is normal, left ventricular ejection fraction is within normal range. normal LV segmental wall motion. Left ventricular diastolic function * Chest xray PA and Lateral (04/16/17): small left pleural effusion with adjacent left basilar consolidative changes. Mild venous congestion. Right hilar prominence. Few distending loops of bowel with the upper and mid abdomen. * CXR: no active disease * Taper Solumedrol IV 60mg qdaily * Duonebs q6h INH GSU (Pre-peak flow 220-->270) * Mucinex 600mg BID * Phenergan/ Codeine 5ml PO Q4H PRN cough * CT Chest (04/14/17): suboptimal study. no evidence of pulmonary embolus. No evidence of pneumonia or mass lesion in the lungs. hepatic steatosis * CT Angio (04/18/17): visualized portions of the inferior thyroid gland appear unremarkable. Mediastinal and hilar vascular structures appear within normal limits. Heart appears within normal limits of size. No large central or segmental pulmonary embolus evident. Bilateral lower lobe atelectasis or infiltrates. No pleural effusion. No pneumothorax. 6mm right lower lobe calcified granuloma. Limited visualized portions of upper abdomen demonstrates hypoattenuation of the liver consistent with hepatic steatosis. No acute osseous abnormality is detected. * Repeat D-Dimer: neagtive * Start Azithromcyin 500mg IV q daily (active on 04/15/17-06/22--> Switch to Avelox 400mg PO daily last dose on 04/20/17 2) Newly diagnosed diabetes * HGA1C- 6.6 * Diabetic Counseling referral * Started on Carbohydrate Consistent Diet * Lipid panel: T, Chol: 163, LDL: 122, HDL: 33 * D/C ASA 81mg PO daily for cardioprotection * Start Lisinopril 2.5mg PO daily for renoprotection * Stopped Metformin 500mg PO daily given patient is going for CT angio yesterday; start on IV fluids to prevent contrast induced nephropathy 3) Elevated D-dimer * CXR: no active disease * EKG shows NSR, no ST changes * CT Chest (04/14/17): suboptimal study. no evidence of pulmonary embolus. No evidence of pneumonia or mass lesion in the lungs. hepatic steatosis * Chest xray PA and Lateral (04/16/17): small left pleural effusion with adjacent left basilar consolidative changes. Mild venous congestion. Right hilar prominence. Few distending loops of bowel with the upper and mid abdomen. * Patient low risk for DVT/PE * Echocardiogram (04/16/17): left ventricle is normal size, normal left ventricular wall thickness, left ventricular function is normal, left ventricular ejection fraction is within normal range. normal LV segmental wall motion. Left ventricular diastolic function 4) Leukocytosis * Monitor WBC * Patient started on IV steroids * Will continue to monitor * Will monitor CBC daily; if patient becomes febrile will order blood cultures 5) Prophylactic measures * DVT PPX: DVT risk score of 0: SCDs * GI PPX: Protonix 40mg PO daily * Regular diet * PT eval: oxygen saturation while on exertion - qualifies for home O2 DW Veronica Mohamud DO, PGY1 <Jen Brito V - Last Filed: 04/19/17 17:08> Objective - Vital Signs/Intake and Output Vital Signs (last 24 hours): Temp Pulse Resp BP Pulse Ox 98.3 F 85 20 115/71 93 L 04/19/17 15:00 04/19/17 15:00 04/19/17 15:00 04/19/17 15:00 04/19/17 15:00 Intake and Output: 04/19/17 04/19/17 06:59 18:59 Intake Total 1040 Output Total 3 Balance 1037 - Medications Medications: Current Medications Albuterol/Ipratropium (Duoneb 3 Mg/0.5 Mg (3 Ml) Ud) 3 ml INH RQ6 [facility] Last Admin: 04/19/17 14:00 Dose: 3 ml Guaifenesin (Mucinex La) 600 mg PO BID [facility] Last Admin: 04/19/17 10:16 Dose: 600 mg Sodium Chloride (Sodium Chloride 0.9%) 1,000 mls @ 100 mls/hr IV .Q10H [facility] Last Admin: 04/19/17 06:32 Dose: 100 mls/hr Ciprofloxacin (Cipro 400mg/200ml Dsw) 400 mg in 200 mls @ 133 mls/hr IVPB Q12H [facility] Stop: 04/21/17 10:01 Last Admin: 04/19/17 10:17 Dose: 133 mls/hr Lisinopril (Zestril) 2.5 mg PO DAILY [facility] Last Admin: 04/19/17 10:16 Dose: 2.5 mg Metformin HCl (Glucophage) 500 mg PO DAILY [facility] Last Admin: 04/19/17 10:21 Dose: Not Given Pantoprazole Sodium (Protonix Ec Tab) 40 mg PO DAILY [facility] Last Admin: 04/19/17 09:58 Dose: 40 mg Promethazine HCl/Codeine (Phenergan/Codeine Oral Syrup) 5 ml PO Q4 PRN PRN Reason: Cough Last Admin: 04/18/17 21:15 Dose: 5 ml Rosuvastatin Calcium (Crestor) 10 mg PO HS [facility] Last Admin: 04/18/17 21:15 Dose: 10 mg Saccharomyces Boulardii (Florastor) 250 mg PO BID [facility] Last Admin: 04/19/17 10:04 Dose: 250 mg - Labs Labs: 04/19/17 07:52 04/19/17 07:52 Attending/Attestation - Attestation I have personally seen and examined this patient.: Yes I have fully participated in the care of the patient.: Yes I have reviewed all pertinent clinical information, including history, physical exam and plan: Yes Notes (Text): Patient seen, examined and case discussed with day-time resident. Patient seen with at bedside. Patient is reporting productive cough. patient reports he is ambulating but remains low 90s while lying down. Avelox PO switched to Ciprofloxcin 400mg IV qdaily. F/u Pulm if patient requires home oxygen and to determine when patient is stable for discharge. Ordered for echo w bubble r/o shunt, low suspicion. Order for abdominal US given hepatic steatosis; hepatitis panel negative. Assessment/Plan 1) Dyspnea Hypoxia * Consulted scabbler Dr Marx- help appreciated * Influenza - negative, f/u strep pneumonia, IgE, legionella, mycoplasma, * PPD (right forearm) placed on 04/13--> 48Hr -negative, 72hr - negative * Echocardiogram (04/16/17): left ventricle is normal size, normal left ventricular wall thickness, left ventricular function is normal, left ventricular ejection fraction is within normal range. normal LV segmental wall motion. Left ventricular diastolic function * Chest xray PA and Lateral (04/16/17): small left pleural effusion with adjacent left basilar consolidative changes. Mild venous congestion. Right hilar prominence. Few distending loops of bowel with the upper and mid abdomen. * CXR: no active disease * Taper Solumedrol IV 60mg qdaily * Duonebs q6h INH GUS (Pre-peak flow 220-->270) * Mucinex 600mg BID * Phenergan/ Codeine 5ml PO Q4H PRN cough * CT Chest (04/14/17): suboptimal study. no evidence of pulmonary embolus. No evidence of pneumonia or mass lesion in the lungs. hepatic steatosis * CT Angio (04/18/17): visualized portions of the inferior thyroid gland appear unremarkable. Mediastinal and hilar vascular structures appear within normal limits. Heart appears within normal limits of size. No large central or segmental pulmonary embolus evident. Bilateral lower lobe atelectasis or infiltrates. No pleural effusion. No pneumothorax. 6mm right lower lobe calcified granuloma. Limited visualized portions of upper abdomen demonstrates hypoattenuation of the liver consistent with hepatic steatosis. No acute osseous abnormality is detected. * Repeat D-Dimer: neagtive * Ciprofloxcin 400mg IV Q 12H (active since 04/19/17) 2) Newly diagnosed diabetes * HGA1C- 6.6 * Diabetic Counseling referral--provided on 04/18 * Started on Carbohydrate Consistent Diet * Lipid panel: T, Chol: 163, LDL: 122, HDL: 33 * D/C ASA 81mg PO daily for cardioprotection per cardio recommendation * Start Lisinopril 2.5mg PO daily for renoprotection * Restart Metformin 500mg PO daily 3) Elevated D-dimer * CXR: no active disease * EKG shows NSR, no ST changes * CT Chest (04/14/17): suboptimal study. no evidence of pulmonary embolus. No evidence of pneumonia or mass lesion in the lungs. hepatic steatosis * Chest xray PA and Lateral (04/16/17): small left pleural effusion with adjacent left basilar consolidative changes. Mild venous congestion. Right hilar prominence. Few distending loops of bowel with the upper and mid abdomen. * Patient low risk for DVT/PE * Echocardiogram (04/16/17): left ventricle is normal size, normal left ventricular wall thickness, left ventricular function is normal, left ventricular ejection fraction is within normal range. normal LV segmental wall motion. Left ventricular diastolic function 4) Leukocytosis * Monitor WBC * Patient started on IV steroids * Will continue to monitor * Will monitor CBC daily; if patient becomes febrile will order blood cultures 5) Prophylactic measures * DVT PPX: DVT risk score of 0: SCDs * GI PPX: Protonix 40mg PO daily * Regular diet * PT eval: oxygen saturation while on exertion
[2017-04-19] MEDS: Sodium Chloride 0.9% 1,000 ML IV SCH ×3 (01:00→19:53)
[2017-04-19] MEDS: Albuterol-Ipratrop 3 mg / 0.5 (3 ml) UD INH SCH ×4 (01:32→19:33)
[2017-04-19 08:10] LABS: BASO % 0.2 % (0.0-2.0); EOS # 0.3 K/uL (0.0-0.7); EOS % 3.1 % (0.0-4.0); LYMPH # 4.1 K/uL (1.0-4.3); LYMPH % 46.4 % (20.0-40.0); MEAN CELL VOLUME 83.5 fL (80.0-94.0); MEAN CORPUSCULAR HEMOGLOBIN 27.7 pg (27.0-31.0); MEAN CORPUSCULAR HGB CONC 33.2 g/dL (33.0-37.0); MEAN PLATELET VOLUME 8.1 fL (7.2-11.7); MONO # 0.5 K/uL (0.0-0.8); MONO % 5.9 % (0.0-10.0); NRBC % 0.1 % (0.0-2.0); RED CELL DISTRIBUTION WIDTH 14.3 % (11.5-14.5); WHITE BLOOD COUNT 8.9 K/uL (4.8-10.8)
[2017-04-19 08:15] LABS: CHLORIDE 102 mmol/L (98-107)
[2017-04-19 08:16] LABS: POTASSIUM 3.9 mmol/L (3.6-5.2); SODIUM 138 mmol/L (132-148)
[2017-04-19 08:18] LABS: ALB/GLOB RATIO 1.1 (1.0-2.1); AST/SGOT 25 U/L (17-59); BILIRUBIN,TOTAL 0.9 mg/dL (0.2-1.3); BLOOD UREA NITROGEN 17 mg/dL (9-20); CARBON DIOXIDE 26 mmol/L (22-30); GFR AFRICAN-AMERICAN > 60; TOTAL PROTEIN 6.3 g/dL (6.3-8.3)
[2017-04-19 08:19] LABS: ALKALINE PHOSPHATASE 60 U/L (38-126); ALT/SGPT 94 U/L (21-72); CALCIUM 8.5 mg/dl (8.6-10.4); GLUCOSE,RANDOM 93 mg/dL (75-110); MAGNESIUM 2.3 mg/dL (1.6-2.3); PHOSPHOROUS 4.5 mg/dL (2.5-4.5)
[2017-04-19] MEDS: Pantoprazole 40 mg EC Tab PO SCH (09:58)
[2017-04-19] MEDS ORDERED: MethylPREDNISolone 40 mg Vial IVP SCH (10:00)
[2017-04-19] MEDS: Saccharomyces Boulardi 250 mg Cap PO SCH ×2 (10:04→17:27)
[2017-04-19] MEDS: guaiFENesin 600 mg ER Tab PO SCH ×2 (10:16→17:27)
[2017-04-19] MEDS: Ciprofloxacin 400mg/200ml D5W 400 MG/200 ML BAG IVPB SCH ×2 (10:17→21:28)
[2017-04-19 16:55] VITALS: RESP 20
[2017-04-19] MEDS: Promethazine/Cod 6.25mg-10mg/5ml Syr UD PO PRN ×2 (17:27→21:27)
--- NOTE | 2017-04-19 23:15 | CP.PCM.PN ---
<Anup Martina - Last Filed: 04/20/17 00:55> Subjective - Date & Time of Evaluation Date of Evaluation: 04/20/17 Time of Evaluation: 00:30 - Subjective Subjective: Medicine Note for Dr. Brito Patient seen and examined at bedside. Patient resting comfortably in bed. No acute complaints. Denied fever, chills, headache, chest pain, SOB, abdominal pain, n/v/d/c, or urinary symptoms. Objective - Vital Signs/Intake and Output Vital Signs (last 24 hours): Temp Pulse Resp BP Pulse Ox 98.3 F 85 20 115/71 93 L 04/19/17 15:00 04/19/17 15:00 04/19/17 15:00 04/19/17 15:00 04/19/17 15:00 Intake and Output: 04/19/17 04/20/17 18:59 06:59 Intake Total 1040 Balance 1040 - Medications Medications: Current Medications Albuterol/Ipratropium (Duoneb 3 Mg/0.5 Mg (3 Ml) Ud) 3 ml INH RQ6 [facility] Last Admin: 04/19/17 19:33 Dose: 3 ml Guaifenesin (Mucinex La) 600 mg PO BID [facility] Last Admin: 04/19/17 17:27 Dose: 600 mg Sodium Chloride (Sodium Chloride 0.9%) 1,000 mls @ 100 mls/hr IV .Q10H [facility] Last Admin: 04/19/17 19:53 Dose: 100 mls/hr Ciprofloxacin (Cipro 400mg/200ml Dsw) 400 mg in 200 mls @ 133 mls/hr IVPB Q12H [facility] Stop: 04/21/17 10:01 Last Admin: 04/19/17 21:28 Dose: 133 mls/hr Lisinopril (Zestril) 2.5 mg PO DAILY [facility] Last Admin: 04/19/17 10:16 Dose: 2.5 mg Metformin HCl (Glucophage) 500 mg PO DAILY [facility] Last Admin: 04/19/17 10:21 Dose: Not Given Pantoprazole Sodium (Protonix Ec Tab) 40 mg PO DAILY [facility] Last Admin: 04/19/17 09:58 Dose: 40 mg Promethazine HCl/Codeine (Phenergan/Codeine Oral Syrup) 5 ml PO Q4 PRN PRN Reason: Cough Last Admin: 04/19/17 21:27 Dose: 5 ml Rosuvastatin Calcium (Crestor) 10 mg PO HS GUS Last Admin: 04/19/17 21:27 Dose: 10 mg Saccharomyces Boulardii (Florastor) 250 mg PO BID [facility] Last Admin: 04/19/17 17:27 Dose: 250 mg - Labs Labs: 04/19/17 07:52 04/19/17 07:52 - Additional Findings Additional findings: - Constitutional Appears: No Acute Distress - Head Exam Head Exam: ATRAUMATIC, NORMAL INSPECTION - Eye Exam Eye Exam: EOMI, Normal appearance - ENT Exam ENT Exam: Mucous Membranes Moist - Respiratory Exam Respiratory Exam: Rales (bilaterally), NORMAL BREATHING PATTERN. absent: Respiratory Distress (venti mask) - Cardiovascular Exam Cardiovascular Exam: REGULAR RHYTHM, +S1, +S2. absent: Murmur - GI/Abdominal Exam GI & Abdominal Exam: Soft, Normal Bowel Sounds. absent: Distended, Tenderness, Mass - Extremities Exam Extremities Exam: Normal Inspection. absent: Calf Tenderness, Pedal Edema, Tenderness - Neurological Exam Neurological Exam: Alert, Awake, Oriented x3 - Psychiatric Exam Psychiatric exam: Normal Affect, Normal Mood - Skin Skin Exam: Dry, Intact, Normal Color, Warm Assessment and Plan - Assessment and Plan (Free Text) Plan: 1) Dyspnea Hypoxia * Consulted wire spooler Dr Marx- help appreciated * Influenza - negative, f/u strep pneumonia, IgE, legionella, mycoplasma, * PPD (right forearm) placed on 04/13--> 48Hr -negative, 72hr - negative * Echocardiogram (04/16/17): left ventricle is normal size, normal left ventricular wall thickness, left ventricular function is normal, left ventricular ejection fraction is within normal range. normal LV segmental wall motion. Left ventricular diastolic function * Chest xray PA and Lateral (04/16/17): small left pleural effusion with adjacent left basilar consolidative changes. Mild venous congestion. Right hilar prominence. Few distending loops of bowel with the upper and mid abdomen. * CXR: no active disease * Taper Solumedrol IV 60mg qdaily * Duonebs q6h INH GUS (Pre-peak flow 220-->270) * Mucinex 600mg BID * Phenergan/ Codeine 5ml PO Q4H PRN cough * CT Chest (04/14/17): suboptimal study. no evidence of pulmonary embolus. No evidence of pneumonia or mass lesion in the lungs. hepatic steatosis * CT Angio (04/18/17): visualized portions of the inferior thyroid gland appear unremarkable. Mediastinal and hilar vascular structures appear within normal limits. Heart appears within normal limits of size. No large central or segmental pulmonary embolus evident. Bilateral lower lobe atelectasis or infiltrates. No pleural effusion. No pneumothorax. 6mm right lower lobe calcified granuloma. Limited visualized portions of upper abdomen demonstrates hypoattenuation of the liver consistent with hepatic steatosis. No acute osseous abnormality is detected. * Repeat D-Dimer: neagtive * Ciprofloxcin 400mg IV Q 12H (active since 04/19/17) 2) Newly diagnosed diabetes * HGA1C- 6.6 * Diabetic Counseling referral--provided on 04/18 * Started on Carbohydrate Consistent Diet * Lipid panel: T, Chol: 163, LDL: 122, HDL: 33 * D/C ASA 81mg PO daily for cardioprotection per cardio recommendation * Start Lisinopril 2.5mg PO daily for renoprotection * Restart Metformin 500mg PO daily 3) Elevated D-dimer * CXR: no active disease * EKG shows NSR, no ST changes * CT Chest (04/14/17): suboptimal study. no evidence of pulmonary embolus. No evidence of pneumonia or mass lesion in the lungs. hepatic steatosis * Chest xray PA and Lateral (04/16/17): small left pleural effusion with adjacent left basilar consolidative changes. Mild venous congestion. Right hilar prominence. Few distending loops of bowel with the upper and mid abdomen. * Patient low risk for DVT/PE * Echocardiogram (04/16/17): left ventricle is normal size, normal left ventricular wall thickness, left ventricular function is normal, left ventricular ejection fraction is within normal range. normal LV segmental wall motion. Left ventricular diastolic function 4) Leukocytosis * Monitor WBC * Patient started on IV steroids * Will continue to monitor * Will monitor CBC daily; if patient becomes febrile will order blood cultures 5) Prophylactic measures * DVT PPX: DVT risk score of 0: SCDs * GI PPX: Protonix 40mg PO daily * Regular diet * PT eval: oxygen saturation while on exertion DW Veronica Mohamud DO, PGY1 <Jen Brito V - Last Filed: 04/20/17 09:54> Objective - Vital Signs/Intake and Output Vital Signs (last 24 hours): Temp Pulse Resp BP Pulse Ox 98.1 F 72 20 99/63 L 96 04/19/17 23:31 04/19/17 23:31 04/19/17 23:31 04/19/17 23:31 04/19/17 23:31 Intake and Output: 04/20/17 04/20/17 06:59 18:59 Intake Total 1100 Balance 1100 - Medications Medications: Current Medications Albuterol/Ipratropium (Duoneb 3 Mg/0.5 Mg (3 Ml) Ud) 3 ml INH RQ6 [facility] Last Admin: 04/20/17 07:35 Dose: 3 ml Guaifenesin (Mucinex La) 600 mg PO BID [facility] Last Admin: 04/19/17 17:27 Dose: 600 mg Ciprofloxacin (Cipro 400mg/200ml Dsw) 400 mg in 200 mls @ 133 mls/hr IVPB Q12H [facility] Stop: 04/21/17 10:01 Last Admin: 04/19/17 21:28 Dose: 133 mls/hr Lisinopril (Zestril) 2.5 mg PO DAILY [facility] Last Admin: 04/19/17 10:16 Dose: 2.5 mg Metformin HCl (Glucophage) 500 mg PO DAILY [facility] Last Admin: 04/19/17 10:21 Dose: Not Given Pantoprazole Sodium (Protonix Ec Tab) 40 mg PO DAILY [facility] Last Admin: 04/19/17 09:58 Dose: 40 mg Promethazine HCl/Codeine (Phenergan/Codeine Oral Syrup) 5 ml PO Q4 PRN PRN Reason: Cough Last Admin: 04/19/17 21:27 Dose: 5 ml Rosuvastatin Calcium (Crestor) 10 mg PO HS [facility] Last Admin: 04/19/17 21:27 Dose: 10 mg Saccharomyces Boulardii (Florastor) 250 mg PO BID [facility] Last Admin: 04/19/17 17:27 Dose: 250 mg - Labs Labs: 04/20/17 08:05 04/20/17 08:05 Attending/Attestation - Attestation I have personally seen and examined this patient.: Yes I have fully participated in the care of the patient.: Yes I have reviewed all pertinent clinical information, including history, physical exam and plan: Yes Notes (Text): Patient seen, examined, and case discussed with day-time resident. Patient denies fever, denies chest pain, denies palpitations, reports cough has improved, denies abdominal pain, denies nausea, denies constipation, denies urinary complaints. Ordered for ABG today and will discuss with pulmonary in regards to discharge planning Assessment/Plan 1) Pneumonia Dyspnea Hypoxia * Consulted wire spooler Dr Marx- help appreciated * Influenza - negative, f/u strep pneumonia, IgE: 101, legionella: negative, mycoplasma, * PPD (right forearm) placed on 04/13--> 48Hr -negative, 72hr - negative * Echocardiogram (04/16/17): left ventricle is normal size, normal left ventricular wall thickness, left ventricular function is normal, left ventricular ejection fraction is within normal range. normal LV segmental wall motion. Left ventricular diastolic function * Chest xray PA and Lateral (04/16/17): small left pleural effusion with adjacent left basilar consolidative changes. Mild venous congestion. Right hilar prominence. Few distending loops of bowel with the upper and mid abdomen. * CXR: no active disease * Completed steroids 04/19 * Duonebs q6h INH GUS (Pre-peak flow 220-->270) * Mucinex 600mg BID * Phenergan/ Codeine 5ml PO Q4H PRN cough * CT Chest (04/14/17): suboptimal study. no evidence of pulmonary embolus. No evidence of pneumonia or mass lesion in the lungs. hepatic steatosis * CT Angio (04/18/17): visualized portions of the inferior thyroid gland appear unremarkable. Mediastinal and hilar vascular structures appear within normal limits. Heart appears within normal limits of size. No large central or segmental pulmonary embolus evident. Bilateral lower lobe atelectasis or infiltrates. No pleural effusion. No pneumothorax. 6mm right lower lobe calcified granuloma. Limited visualized portions of upper abdomen demonstrates hypoattenuation of the liver consistent with hepatic steatosis. No acute osseous abnormality is detected. * Repeat D-Dimer: negative * Ciprofloxcin 400mg IV Q 12H (active since 04/19/17) 2) Newly diagnosed diabetes * HGA1C- 6.6 * Diabetic Counseling referral--provided on 04/18/17 * Started on Carbohydrate Consistent Diet * Lipid panel: T, Chol: 163, LDL: 122, HDL: 33 * D/C ASA 81mg PO daily for cardioprotection per cardio recommendation * Start Lisinopril 2.5mg PO daily for renoprotection * Restart Metformin 500mg PO daily 3) Elevated D-dimer-->resolved * CXR: no active disease * EKG shows NSR, no ST changes * CT Chest (04/14/17): suboptimal study. no evidence of pulmonary embolus. No evidence of pneumonia or mass lesion in the lungs. hepatic steatosis * Chest xray PA and Lateral (04/16/17): small left pleural effusion with adjacent left basilar consolidative changes. Mild venous congestion. Right hilar prominence. Few distending loops of bowel with the upper and mid abdomen. * Patient low risk for DVT/PE * Echocardiogram (04/16/17): left ventricle is normal size, normal left ventricular wall thickness, left ventricular function is normal, left ventricular ejection fraction is within normal range. normal LV segmental wall motion. Left ventricular diastolic function * D-dimer: 271--><200 4) Leukocytosis-->resolved * Monitor WBC * Patient started on IV steroids * Will continue to monitor * Will monitor CBC daily; if patient becomes febrile will order blood cultures 5) Prophylactic measures * DVT PPX: DVT risk score of 0: SCDs * GI PPX: Protonix 40mg PO daily * Florastor 250mg PO BID * Regular diet * PT eval: oxygen saturation while on exertion
[2017-04-19 23:33] VITALS: O2SAT 96
[2017-04-20] MEDS: Albuterol-Ipratrop 3 mg / 0.5 (3 ml) UD INH SCH ×2 (07:35→13:27)
[2017-04-20 08:21] LABS: BASO % 0.3 % (0.0-2.0); EOS # 0.5 K/uL (0.0-0.7); EOS % 6.1 % (0.0-4.0); HEMATOCRIT 45.8 % (35.0-51.0); LYMPH # 3.6 K/uL (1.0-4.3); MEAN CELL VOLUME 82.8 fL (80.0-94.0); MEAN CORPUSCULAR HEMOGLOBIN 27.8 pg (27.0-31.0); MEAN CORPUSCULAR HGB CONC 33.5 g/dL (33.0-37.0); MEAN PLATELET VOLUME 8.1 fL (7.2-11.7); MONO # 0.5 K/uL (0.0-0.8); MONO % 6.3 % (0.0-10.0); NRBC % 0.1 % (0.0-2.0); RED CELL DISTRIBUTION WIDTH 14.5 % (11.5-14.5); WHITE BLOOD COUNT 8.5 K/uL (4.8-10.8)
[2017-04-20 08:38] LABS: CHLORIDE 103 mmol/L (98-107); SODIUM 135 mmol/L (132-148)
[2017-04-20 08:39] LABS: POTASSIUM 4.2 mmol/L (3.6-5.2)
[2017-04-20 08:40] LABS: GFR AFRICAN-AMERICAN > 60
[2017-04-20 08:41] LABS: ALKALINE PHOSPHATASE 62 U/L (38-126); ALT/SGPT 96 U/L (21-72); AST/SGOT 36 U/L (17-59); BILIRUBIN,TOTAL 1.1 mg/dL (0.2-1.3); BLOOD UREA NITROGEN 19 mg/dL (9-20); CALCIUM 8.5 mg/dl (8.6-10.4); CARBON DIOXIDE 24 mmol/L (22-30); GLUCOSE,RANDOM 93 mg/dL (75-110); PHOSPHOROUS 4.2 mg/dL (2.5-4.5); TOTAL PROTEIN 6.9 g/dL (6.3-8.3)
[2017-04-20 08:42] LABS: MAGNESIUM 2.2 mg/dL (1.6-2.3)
[2017-04-20] MEDS: Pantoprazole 40 mg EC Tab PO SCH (10:06)
[2017-04-20] MEDS: Saccharomyces Boulardi 250 mg Cap PO SCH (10:06)
[2017-04-20] MEDS: guaiFENesin 600 mg ER Tab PO SCH (10:06)
[2017-04-20] MEDS: Ciprofloxacin 400mg/200ml D5W 400 MG/200 ML BAG IVPB SCH (10:07)
[2017-04-20 11:34] LABS: ABG ALLEN TEST POS; ARTERIAL BLOOD HGB O2 SAT 92.3 % (95.0-98.0); CARBOXYHEMOGLOBIN 1.8 % (0.5-1.5); DRAW SITE RRA; HHB 4.8 % (0.0-5.0)
--- NOTE | 2017-04-20 12:32 | CP.PCM.DIS ---
Provider - Provider Date of Admission: 04/15/17 13:27 Attending physician: Benton Alejandre MD Consults: Dr. Francisco J Duron Time Spent in preparation of Discharge (in minutes): 31 Diagnosis - Discharge Diagnosis (1) Pneumonia Status: Resolved Comment: Please refer to discharge summary (2) Hypoxia Status: Chronic Comment: Please refer to discharge summary (3) Hepatic steatosis Status: Chronic Comment: Please refer to discharge summary (4) Newly diagnosed diabetes Status: Chronic Comment: Please refer to discharge summary (5) Leukocytosis Status: Resolved Comment: Please refer to discharge summary Hospital Course - Lab Results Lab Results: Most Recent Lab Values WBC 8.5 K/uL (4.8-10.8) 04/20/17 08:05 RBC 5.54 Mil/uL (4.40-5.90) 04/20/17 08:05 Hgb 15.4 g/dL (12.0-18.0) 04/20/17 08:05 Hct 45.8 % (35.0-51.0) 04/20/17 08:05 MCV 82.8 fL (80.0-94.0) 04/20/17 08:05 MCH 27.8 pg (27.0-31.0) 04/20/17 08:05 MCHC 33.5 g/dL (33.0-37.0) 04/20/17 08:05 RDW 14.5 % (11.5-14.5) 04/20/17 08:05 Plt Count 487 K/uL (130-400) H 04/20/17 08:05 MPV 8.1 fL (7.2-11.7) 04/20/17 08:05 Neut % (Auto) 45.3 % (50.0-75.0) L 04/20/17 08:05 Lymph % (Auto) 42.0 % (20.0-40.0) H 04/20/17 08:05 Winkler % (Auto) 6.3 % (0.0-10.0) 04/20/17 08:05 Eos % (Auto) 6.1 % (0.0-4.0) H 04/20/17 08:05 Baso % (Auto) 0.3 % (0.0-2.0) 04/20/17 08:05 Neut # 3.8 K/uL (1.8-7.0) 04/20/17 08:05 Lymph # 3.6 K/uL (1.0-4.3) 04/20/17 08:05 Winkler # 0.5 K/uL (0.0-0.8) 04/20/17 08:05 Eos # 0.5 K/uL (0.0-0.7) 04/20/17 08:05 Baso # 0.0 K/uL (0.0-0.2) 04/20/17 08:05 Neutrophils % (Manual) 80 % (50-75) H 04/16/17 07:03 Band Neutrophils % 2 % (0-2) 04/16/17 07:03 Lymphocytes % (Manual) 12 % (20-40) L 04/16/17 07:03 Reactive Lymphs % 1 % (0-0) H 04/14/17 07:06 Monocytes % (Manual) 5 % (0-10) 04/16/17 07:03 Myelocytes % 1 % (0-0) H 04/16/17 07:03 Toxic Granulation Present 04/14/17 07:06 Platelet Estimate Increased (NORMAL) H 04/16/17 07:03 RBC Morphology Normal 04/16/17 07:03 D-Dimer, Quantitative < 200 ng/mlDDU (0-243) 04/17/17 14:18 Puncture Site Rra 04/20/17 11:27 pCO2 38 mm/Hg (35-45) 04/20/17 11:27 pO2 59 mm/Hg (80-100) L 04/20/17 11:27 HCO3 25.6 mmol/L (21-28) 04/20/17 11:27 ABG pH 7.43 (7.35-7.45) 04/20/17 11:27 ABG Total CO2 26.4 mmol/L (22-28) 04/20/17 11:27 ABG O2 Saturation 95.1 % (95-98) 04/20/17 11:27 ABG Base Excess 1.0 mmol/L (-2.0-3.0) 04/20/17 11:27 ABG Hemoglobin 14.9 g/dL (11.7-17.4) 04/20/17 11:27 ABG Carboxyhemoglobin 1.8 % (0.5-1.5) H 04/20/17 11:27 POC ABG HHb (Measured) 4.8 % (0.0-5.0) 04/20/17 11:27 ABG Methemoglobin 1.0 % (0.0-3.0) 04/20/17 11:27 [place] Test Pos 04/20/17 11:27 A-a O2 Difference 43.0 mm/Hg 04/20/17 11:27 Respiratory Index 0.7 04/20/17 11:27 Hgb O2 Saturation 92.3 % (95.0-98.0) L 04/20/17 11:27 FiO2 21.0 % 04/20/17 11:27 Sodium 135 mmol/L (132-148) 04/20/17 08:05 Potassium 4.2 mmol/L (3.6-5.2) 04/20/17 08:05 Chloride 103 mmol/L (98-107) 04/20/17 08:05 Carbon Dioxide 24 mmol/L (22-30) 04/20/17 08:05 Anion Gap 12 (10-20) 04/20/17 08:05 BUN 19 mg/dL (9-20) 04/20/17 08:05 Creatinine 0.8 mg/dL (0.8-1.5) 04/20/17 08:05 Est GFR ( Amer) > 60 04/20/17 08:05 Est GFR (Non-Af Amer) > 60 04/20/17 08:05 POC Glucose (mg/dL) 104 mg/dL (65-110) 04/20/17 11:59 Random Glucose 93 mg/dL (75-110) 04/20/17 08:05 Hemoglobin A1c 6.6 % (4.2-6.5) H 04/16/17 06:16 Calcium 8.5 mg/dl (8.6-10.4) L 04/20/17 08:05 Phosphorus 4.2 mg/dL (2.5-4.5) 04/20/17 08:05 Magnesium 2.2 mg/dL (1.6-2.3) 04/20/17 08:05 Total Bilirubin 1.1 mg/dL (0.2-1.3) 04/20/17 08:05 AST 36 U/L (17-59) 04/20/17 08:05 ALT 96 U/L (21-72) H 04/20/17 08:05 Alkaline Phosphatase 62 U/L (38-126) 04/20/17 08:05 Total Protein 6.9 g/dL (6.3-8.3) 04/20/17 08:05 Albumin 3.5 g/dL (3.5-5.0) 04/20/17 08:05 Globulin 3.4 gm/dL (2.2-3.9) 04/20/17 08:05 Albumin/Globulin Ratio 1.0 (1.0-2.1) 04/20/17 08:05 Triglycerides 155 mg/dL (0-149) H 04/17/17 07:47 Cholesterol 163 mg/dL (0-199) 04/17/17 07:47 LDL Cholesterol Direct 122 mg/dL (0-129) 04/17/17 07:47 HDL Cholesterol 35 mg/dL (30-70) 04/17/17 07:47 IgE 101 kU/L (<la=988) 04/15/17 14:06 Hepatitis A IgM Ab Negative (NEGATIVE) 04/19/17 07:52 Hep Bs Antigen Negative (NEGATIVE) 04/19/17 07:52 Hep B Core IgM Ab Negative (NEGATIVE) 04/19/17 07:52 Hepatitis C Antibody Negative (NEGATIVE) 04/19/17 07:52 Influenza Typ A,B (EIA) Negative for flu a/b (NEGATIVE) 04/13/17 13:34 Ur L.pneumophila Ag Negative (NEGATIVE) 04/14/17 21:07 - Hospital Course Hospital Course: Per H&P CC: "I couldn't breath" HPI: 36 year old male with no past medical history presenting to the emergency department for shortness of break for the past week. Patient stated that his shortness of breath began on 04/07. He went to [facility] that day and was sent home with a script for albuterol INH q6h prn. The patient did not fill the script until 2 days later and by then his shortness of breath had worsened. The patient is short of breath at rest as well as with exertion. Patient denies having a history of asthma and ever needing albuterol prior to last week. The albuterol prescription was filled 04/09 and the patient has been using it every 6 hours with mild relief. The patient states over the week his shortness of breath has been increasing and today unbearable. Patient is also complaining of subjective fevers which he has been taking acetaminophen. Patient is also complaining of a productive cough with yellow sputum that started on the same day. The patient complains of sore throat. Patient denies headache, sinus pressure, and nasal congestion. On 04/12 the sputum was blood tinged (3 episodes) and no more blood tinging since that Friday. Patient denies weight loss, nausea, vomiting, and diarrhea. Patient has had decreased appetite. Patient also complains of night sweats. Patient denies recent travel and moved from [facility] 14 years ago. Patient denies recent sick contacts. Patients has never had tuberculosis nor the BCG vaccine. PMD: none PMHx: denies Social Hx: Denies tobacco use, denies alcohol use, denies illicit drug use; works at a [employer], only [place] speaking Allergy: none Surgical Hx: appendectomy in 2010 Hospitalizations: appendectomy in 2010 Family Hx: mother has insulin dependent DM, father healthy, older sister asthma Medicine: none Recent albuterol and acetaminophen use FULL CODE Next of kin: Holly Lewis () # [phone] Patient admitted to the hospital. Cardiology and pulmonary on the case. Patient received IV abx to cover for pneumonia. Patient completed CT angio which ruled out pulmonary embolus. Patient received IV steroids, received nebulizer treatments, and antitussive therapy to alleviate cough. Per pulmonary, patient is stable from the hospital but recommended to follow-up as outpatient. Per cardiology, dyspnea not cardiac in nature. Patient diagnosed with diabetes on this admission. Patient met with music educator and internal grinder set up operator to promote lifestyle modifications. Patient is aware that diabetes is a risk factor for other unwanted complications including blindness, heart attack, kidney problems, and delayed wound healing. Patient will need outpatient followup with podiatry and opthalamologist for annual screening exams. Patient recommended to follow-up and establish care at the [facility] ([phone]). Patient recommended for referral to pulmonary for pulmonary function tests. Patient will need outpatient followup with podiatry and tour counselor for annual diabetic screening exams. New prescriptions upon discharge: 1) Albuterol HFA 1 puff Q 6hour PRN shortness of breathe 2) Ciprofloxcin 750mg once a daily (3 tabs/0 refills) 3) Mucinex 600mg PO BID 4) Lisinopril 2.5mg once day (30 tabs/0 refills) 5) Metformin 500mg once a day (30 tabs/0 refills) 6) Phenergan w codeine 5ml every 4hours as needed as for cough (120 cc/0 refills ) 7) Simvastatin 20mg once a night (30 tabs/0 refill) Work excuse noted provided at discharge from time in the hospital until 04/21/17 ; can resume work on 04/23/17. This is a summary of patient's hospitalization. Please see EMR for full record. Discharge Diagnoses: 1) Pneumonia-->Rx PO medications upon discharge, and f/u chest xray in a month 2) Hypoxia-->Completed treatment for pneumonia, will need pulmonary referral and outpatient pulmonary function tests 3) Diabetes--> Start Metformin 500 once a day, monitor blood sugars at home, and will need outpatient management and referral to podiatry and opthalmology for annual diabetes screening exams 4) elevated-Dimer-->resolved 5) Leukocytosis-->resolved - Date & Time of H&P Date of H&P: 04/13/17 Time of H&P: 13:42 Discharge Exam - Head Exam Head Exam: ATRAUMATIC, NORMAL INSPECTION, NORMOCEPHALIC - Eye Exam Eye Exam: EOMI, Normal appearance, PERRL. absent: Nystagmus, Scleral icterus Pupil Exam: PERRL - ENT Exam ENT Exam: Mucous Membranes Moist - Neck Exam Neck exam: Normal Inspection - Respiratory Exam Respiratory Exam: NORMAL BREATHING PATTERN. absent: Rales, Respiratory Distress , Stridor Additional comments: good air way exchange - Cardiovascular Exam Cardiovascular Exam: REGULAR RHYTHM, +S1, +S2 - GI/Abdominal Exam GI & Abdominal Exam: Normal Bowel Sounds, Soft. absent: Distended, Firm, Guarding, Rebound, Rigid, Tenderness - Extremities Exam Extremities exam: pedal pulses present - Back Exam Back exam: absent: CVA tenderness (L), CVA tenderness (R), rash noted - Neurological Exam Neurological exam: Alert, Oriented x3 - Psychiatric Exam Psychiatric exam: Normal Affect, Normal Mood - Skin Skin Exam: Dry, Intact, Normal Color, Warm Discharge Plan - Discharge Medications Prescriptions: Albuterol HFA [Ventolin HFA 90 mcg/actuation (8 g)] 1 puff IH Q6H PRN #1 inhaler PRN Reason: Shortness Of Breath guaiFENesin [Mucinex LA] 600 mg PO BID 7 Days tab levoFLOXacin [Levaquin] 750 mg PO DAILY #3 tab Lisinopril [Zestril] 2.5 mg PO DAILY #30 tab metFORMIN [glucOPHAGE] 500 mg PO DAILY #30 tab Promethazine/Codeine [Phenergan/Codeine Oral Syrup] 5 ml PO Q4 PRN #120 udc PRN Reason: Cough Simvastatin 20 mg PO HS #30 tablet - Follow Up Plan Condition: STABLE Disposition: HOME/ ROUTINE Additional Instructions: New prescriptions upon discharge: 1) Albuterol HFA 1 puff Q 6hour PRN shortness of breathe 2) Ciprofloxcin 750mg once a daily (3 tabs/0 refills) 3) Mucinex 600mg PO BID 4) Lisinopril 2.5mg once day (30 tabs/0 refills) 5) Metformin 500mg once a day (30 tabs/0 refills) 6) Phenergan w codeine 5ml every 4hours as needed as for cough (120 cc/0 refills ) 7) Simvastatin 20mg once a night (30 tabs/0 refill) Referrals: Edgard Marx MD [Staff Provider] - [facility] [Provider Group]
[2017-04-20 14:34] VITALS: BP 105/61; PULSE 96; TEMP 98.6
== END 2017-04-20 16:30 | disposition home or self-care (01) | DRG 89 ==
LOC: C.ER 07:20 → C.9E 09:24 → C.3T 09:36 → INTOOBSV 10:57 → OBSVTOIN 10:57
PROVIDERS: ADMIT Family Medicine; ATTEND Family Medicine
DX: J18.9 Pneumonia, unspecified organism (principal); R09.02 Hypoxemia; J45.901 Unspecified asthma with (acute) exacerbation; K76.0 Fatty (change of) liver, not elsewhere classified; J98.11 Atelectasis; E11.9 Type 2 diabetes mellitus without complications; R79.1 Abnormal coagulation profile; E78.5 Hyperlipidemia, unspecified